=== PATIENT | female | born 1940 | race Caucasian/White ===

== ENCOUNTER 2024-10-26 10:06 | Outpatient (REF) | payer OTHER, MEDICARE, SELFPAY ==
--- OUTSIDE RECORDS SUMMARY | 2024-10-26 12:46 | XMS_ITS | Encounter Summary ---
Author Organization [facility] Address [address] [place] [address] Care Team Providers Care Net Web Developer Name Role Phone Marvel Dia MD Primary Care Provider [phone] Reason for Visit * Reason Onset Date Comments Nasal Congestion 10/14/2024 Encounter Details Date Type Department Care Team ([facility] st Contact Info) Description 10/14/2024 [facility] [address] [place] [phone] Marvel Dia MD [address] [place] [phone] Nasal Congestion Social History Tobacco Use Types [...] No immed. appts avail.-[facility] for [facility]. * Haley Armstrong - 10/14/2024 [...] traveled recently to another state outside of [place], [place], [place], [place], [place], [place], [place]? no o If yes, did you quarantine [...] of accident/Injury: No If yes, gather 3rd green party insurance information Third Democrat Information: not applicable PCP: Marvel Dia MD Payor: MEDICARE / Plan: MEDICARE PART A & B / Product Type: Medicare / documented in this encounter Plan of Treatment Upcoming Encounters Date Type Department Care Team (Late st Contact Info) Description 03/21/2025 12:00 PM EDT Consult Nephrology - [facility] [address] [place] [address] Richard Frias MD [address] [phone] 04/04/2025 2:30 PM EDT Office Visit Internal Medicine - [facility] [address] [place] [phone] Marvel Dia MD [address] [place] [phone] documented as of this encounter Visit Diagnoses Not on filedocumented in this encounter Care Teams Net Web Developer Relationship Specialty Start Date End Date Marvel Dia MD [address] [place] [phone] PCP - General Internal Medicine 09/30/24 documented as of this encounter
--- OUTSIDE RECORDS SUMMARY | 2024-10-26 12:46 | XMS_ITS | Clinical Summary ---
Author Organization [facility] Address [address] [place] [address] Care Team Providers Care Road Oiler Name Role Phone Marvel Dia MD Primary Care Provider [phone] Medications No known medications Active Problems No [...] age to complete this topic Care Teams Road Oiler Relationship Specialty Start Date End Date Marvel Dia MD PCP - General Internal Medicine 07/21/24
--- OUTSIDE RECORDS SUMMARY | 2024-10-26 12:46 | XMS_ITS | Clinical Summary ---
Author Organization [address] [facility] Address [address] [place] [phone] Phone Care Team Providers Care Real Estate Leasing Manager Name Role Phone Marvel Dia MD Primary Care Provider [phone] Allergies Active Allergy Reactions Criticality Noted Date [...] 2.5 mg by mouth as needed. Per manager underwriting Active hydrOXYzine HCL (ATARAX) 10 mg tabletIndications [...] Care Team Description 10/14/2024 Telephone Internal Medicine [address] [phone] Marvel Dia MD Nasal Congestion 10/04/2024 11:00 AM EST Office Visit Internal [address] [phone] Marvel Dia MD Primary hypertension (Primary Dx); Pure hypercholesterolemia ; Anxiety 08/31/2024 Telephone Internal [address] [phone] Marvel Dia MD Referral (EXTERNAL / NEPHROLOGY) 08/16/2024 Telephone Internal Medicine [address] [phone] Marvel Dia MD Referral 08/10/2024 1:30 PM EST Office Visit Internal [address] [phone] Marvel Dia MD MAGUI (acute kidney injury) ([facility]) (Primary Dx); Anxiety; Primary hypertension; Pacemaker 08/08/2024 Telephone Internal Medicine [address] [phone] Marvel Dia MD Medication Reaction 08/08/2024 Telephone Internal Medicine [address] [phone] Marvel Dia MD Diarrhea 08/07/2024 2:15 PM EST Clinic Lab Collection Walk-In Clinic - [address] [phone] Unspecified kidney failure (Primary Dx) 08/07/2024 1:45 PM EST Office Visit Walk-In [address] [phone] Devonte Jeff MD Urinary tract [...] 03/21/2025 12:00 PM EDT Consult Nephrology - [address] [phone] Richard Frias MD [address] [phone] 04/04/2025 2:30 PM EDT Office Visit Internal Medicine - [address] [phone] Marvel Dia MD [address] [place] [phone] Health Maintenance Due Date Last Done Comments [...] unspecified Fever, unspecified fever cause POC RAPID [id number], MOLECULAR Routine 08/07/2024 2:49 PM EST Fever, [...] - AUTOMATED METHOD 08/07/2024 6:49 PM EST [facility] WBC, Urine 6.0(H) 0 - 4 /HPF LAB URINALYSIS - AUTOMATED METHOD 08/07/2024 6:49 PM EST [facility] Squamous Epithelial, Urine 21 0 - 60 /LPF LAB URINALYSIS - AUTOMATED METHOD 08/07/2024 6:49 PM EST [facility] Bacteria, Urine Negative Negative /HPF LAB URINALYSIS - AUTOMATED METHOD 08/07/2024 6:49 PM EST [facility] Hyaline Casts, Urine 0.0 0 - 3 /LPF LAB URINALYSIS - AUTOMATED METHOD 08/07/2024 6:49 PM EST [facility] Urine Urine specimen obtained by clean catch procedure / Unknown Non-blood Collection / Unknown 08/07/2024 3:43 PM EST 08/07/2024 3:43 PM EST Devonte Jeff MD LAB URINE ORDERABLES [facility] [address] [place] [address], * Culture urine (08/07/2024 3:43 PM EST) Culture, Urine 10,000-49,000 CFU/mL Mixed urogenital rito, no uropathogens present. Suggest repeat specimen if clinically indicated. 08/09/2024 11:44 AM EST [facility] Urine Urine specimen from urethra / Unknown Non-blood Collection / Unknown 08/07/2024 3:43 PM EST 08/07/2024 3:43 PM EST Devonte Jeff MD LAB MICROBIOLOGY - G ENERAL ORDERABLES [facility] [address] [place] [address], * (ABNORMAL) POC Urine Non-Auto W/O Micro (08/07/2024 2:50 PM EST) [facility] Glucose UA POC Negative Negative, Trace mg/dL Leukocytes UA POC 2+(A) Negative Nitrite UA POC Negative Negative Urobilinogen UA POC 0.2 E.U./dL mg/dL Protein UA POC Negative Negative, >=300 mg/dL PH UA POC 5.0 Blood UA POC Negative Negative, Large Specific [place] UA POC 1.015 Ketones UA POC Negative Negative, Trace Bilirubin UA POC Negative Negative, Small Appearance UA POC Clear Color UA POC Light Yellow Urine Urine specimen obtained by clean catch procedure / Unknown 08/07/2024 2:50 PM EST Devonte Jeff MD POINT OF CARE TEST E NTER/EDIT ORDERABLES * Poc Rapid [id number], MOLECULAR (08/07/2024 2:49 PM EST) [facility] COVID-19/SARS- COV-2 Rapid POC Negative Negative Internal Control Pass Yes Yes Swab Nasopharyngeal structure / Unknown 08/07/2024 2:49 PM EST Devonte Jeff MD POINT OF CARE TEST E NTER/EDIT ORDERABLES * (ABNORMAL) Comprehensive metabolic panel (08/07/2024 2:39 PM EST) [facility] Sodium 139 133 - 145 mmol/L LAB CHEMISTRY METHOD 08/07/2024 8:30 PM EST [facility] Potassium 4.2 3.5 - 5.5 mmol/L LAB CHEMISTRY METHOD 08/07/2024 8:[address] [facility] Chloride 105 96 - 110 mmol/L LAB CHEMISTRY METHOD 08/07/2024 8:[address] [facility] CO2 25 21 - 32 mmol/L LAB CHEMISTRY METHOD 08/07/2024 8:[address] [facility] Anion Gap 9 3 - 11 LAB CHEMISTRY METHOD 08/07/2024 8:[address] [facility] Glucose 128(H) 70 - 100 mg/dL LAB CHEMISTRY METHOD 08/07/2024 8:[address] [facility] BUN 27(H) 5 - 25 mg/dL LAB CHEMISTRY METHOD 08/07/2024 8:[address] [facility] Creatinine 1.43(H) 0.50 - 1.10 mg/dL LAB CHEMISTRY METHOD 08/07/2024 8:[address] [facility] eGFR 36(L) >=60 mL/min/1. 73m2 LAB CHEMISTRY METHOD 08/07/2024 8:[address] [facility] Comment:Calculation based on the??Chronic Kidney Disease Epidemiology Collaboration (CKD-EPI) equation refit??without adjustment for race. BUN/Creatinine Ratio 18.9 LAB CHEMISTRY METHOD 08/07/2024 8:[address] [facility] Calcium 9.8 8.5 - 10.5 mg/dL LAB CHEMISTRY METHOD 08/07/2024 8:[address] [facility] AST (SGOT) 26 10 - 42 unit/L LAB CHEMISTRY METHOD 08/07/2024 8:[address] [facility] ALT (SGPT) 26 10 - 60 unit/L LAB CHEMISTRY METHOD 08/07/2024 8:[address] [facility] Alkaline Phosphatase 65 42 - 121 unit/L LAB CHEMISTRY METHOD 08/07/2024 8:[address] [facility] Total Protein 7.0 6.0 - 8.0 g/dL LAB CHEMISTRY METHOD 08/07/2024 8:30 PM EST [facility] Albumin 4.0 3.2 - 5.0 g/dL LAB CHEMISTRY METHOD 08/07/2024 8:30 PM EST [facility] Total Bilirubin 0.4 0.0 - 1.4 mg/dL LAB CHEMISTRY METHOD 08/07/2024 8:30 PM EST [facility] Blood Venous blood specimen / Unknown Venipuncture / Unknown 08/07/2024 2:39 PM EST 08/07/2024 2:40 PM EST Marvel Dia MD LAB BLOOD ORDERABLES [facility] [address] [place] [address], * Depression Screening (03/14/2024) Pathologist Replaced by [facility] Depression Screening abstracted Historical Provider MD PORTILLO EDWARDS E * (ABNORMAL) Lipid panel (03/14/2024) [facility] LDL/HDL Ratio 3 0 - 4 Triglycerides 62 0 - 150 mg/dL Cholesterol 238(A) 0 - 200 mg/dL HDL 85 40 mg/dL LDL Cholesterol 141(A) 0 - 100 mg/dL Blood Venous blood specimen / Unknown Historical Provider LAB BLOOD ORDERAB LES * Falls Risk Assessment (05/05/2023) [facility] Falls Risk Assessment abstracted Historical Provider MD PORTILLO Bosch from Last 3 Months or Most Recently Relevant to Health Maintenance Care Teams Real Estate Leasing Manager Relationship Specialty Start Date End Date Marvel Dia MD [address] [place] [phone] PCP - General Internal Medicine 09/30/24
--- OUTSIDE RECORDS SUMMARY | 2024-10-26 12:46 | XMS_ITS | Encounter Summary ---
Author Organization [facility] Address [address] [place] [address] Care Team Providers Care Visual Effects Editor Name Role Phone Marvel Dia MD Primary Care Provider [phone] Reason for Visit * Reason Comments Follow-up meds Encounter Details Date Type Department Care Team (Late st Contact Info) Description 10/04/2024 11:00 AM EST Office Visit Internal Medicine - [address] [phone] Marvel Dia MD [address] [place] [phone] Primary hypertension (Primary Dx); Pure hypercholesterolemia ; [...] 2.5 mg by mouth as needed. Per school operations manager LORazepam (ATIVAN) 0.5 mg tablet TAKE 1 [...] 03/21/2025 12:00 PM EDT Consult Nephrology - [address] [phone] Richard Frias MD [address] [phone] 04/04/2025 2:30 PM EDT Office Visit Internal Medicine - [address] [phone] Marvel Dia MD [address] [place] [address] Scheduled Orders Name Type Priority Associated Diagnoses Orde r Schedule Lipid panel Lab Routine Primary hypertension Pure hypercholesterolemia 1 Occurrences starting 10/04/2024 until 10/04/2025 documented as of this encounter Visit Diagnoses Diagnosis Primary hypertension- Primary Unspecified essential hypertension Pure hypercholesterolemia Anxiety Anxiety state, unspecified documented in this encounter Care Teams Visual Effects Editor Relationship Specialty Start Date End Date Marvel Dia MD [address] [place] [phone] PCP - General Internal Medicine 09/30/24 documented as of this encounter
[2024-10-26 17:41] LABS: MANUAL DIFF FLAG NO
[2024-10-26 17:49] LABS: Basophils Absolute Auto 0.1 X10*3/uL (0.0-0.2); Basophils Percent Auto 1.2 % (0-2); Eosinophils Absolute Auto 0.1 X10*3/uL (0.0-0.4); Eosinophils Percent Auto 0.7 % (0-4); Hematocrit 43.8 % (37.0-47.0); Hemoglobin 14.1 g/dl (12.0-16.0); Imm Gran Abs Auto 0.05 X10*3/uL (0.00-0.03); Imm Gran Pct Auto 0.6 % (0.0-0.4); Lymphocytes Absolute Auto 1.2 X10*3/uL (1.2-4.9); Lymphocytes Percent Auto 14.6 % (20-40); Mean Corpuscular HGB Conc 32.2 g/dl (31.0-35.0); Mean Corpuscular Hemoglobin 31.5 pg (27.0-33.0); Mean Platelet Volume 10.2 fL (9.4-12.3); Monocytes Absolute Auto 0.9 X10*3/uL (0.1-1.2); Monocytes Percent Auto 10.5 % (2-11); Neutrophils Percent Auto 72.4 % (45-73); Platelet Count 338 X10*3/uL (160-400); Red Blood Count 4.47 X10*6/uL (4.20-5.50); Red Cell Distribution Width 13.7 % (11.0-16.0); White Blood Count 8.2 X10*3/uL (4.8-10.8)
[2024-10-26 18:09] LABS: Appearance Urine Clear; Color Urine Yellow; Glucose Urine UA Negative (Negative); Leukocyte Esterase Urine Negative (Negative); Nitrite Urine Negative (Negative); PH 5.5 (5.0-9.0); Specific Gravity - Urine 1.015 (1.005-1.025); Urine Blood Negative (Negative); Urine Ketones Negative (Negative); Urine Protein Negative (Neg-Trace)
[2024-10-26 18:13] LABS: Creatinine Urine 56.52 mg/dL; Total Protein Urine Random < 7 mg/dL (<12)
[2024-10-26 18:32] LABS: Parathyroid Hormone Intact 96.5 pg/mL (8.7-77.1)
[2024-10-26 18:43] LABS: Alanine Aminotransferase 15 U/L (0-31); Albumin Level 4.2 g/dL (3.5-5.0); Alkaline Phosphatase 51 U/L (39-117); Anion Gap 11 (12-20); Aspartate Amino Transferase 26 U/L (5-31); Bilirubin Total 0.4 mg/dL (0.0-1.0); Blood Urea Nitrogen 26 mg/dL (9-16); Calcium 9.2 mg/dL (8.4-10.2); Carbon Dioxide 24 mmol/L (22-29); Chloride 107 mmol/L (96-108); Estimated Glomerular Filt Rate > 60; Glucose Random 95 mg/dL (60-115); Potassium 4.5 mmol/L (3.3-5.1); Sodium 137 mmol/L (135-145); Total Protein 7.3 g/dL (6.5-8.0)
[2024-10-26 18:58] LABS: Vitamin D 25-OH Total 43.3 ng/mL (>30)
== END 2024-10-26 10:07 | disposition home or self-care (01) ==
LOC: HO.HKASLDS 10:06
PROVIDERS: PCP Internal Medicine; Visit Provider Internal Medicine Hypertension Specialist
DX: N18.9 Chronic kidney disease, unspecified (principal); M34.1 CR(E)ST syndrome; I10 Essential (primary) hypertension
CPT/HCPCS: 36415; 80053; 81003; 82306; 82570; 83970; 84156; 84300; 85025

== ENCOUNTER 2024-10-26 10:06 | Outpatient (AMB) | payer OTHER, MEDICARE, SELFPAY ==
--- NOTE | 2024-10-26 10:08 | HO.NEPHOV ---
Vital Signs 10/26/24 10:09 10/26/24 10:39 10/26/24 10:39 Height 5 ft 2 in Weight 125 lb BMI 22.9 BP 150/74 H 110/80 110/70 Blood Pressure Location Lt brachial Lt brachial Lt brachial Position Sitting Sitting Standing Pulse 78 Pulse Source Pulse Oximeter Pulse Oximetry (%) 99 Oxygen Delivery Method Room Air Intake Visit Reasons: DX- MAGUI/ Conf Dry Talc Racker Required: No Accompanied by: Self / Same As Patient Allergies ANGIE Inhibitors Allergy (Unknown, Verified 10/26/24 10:13) Unknown amoxicillin Allergy (Unknown, Verified 10/26/24 10:13) Itching escitalopram Allergy (Unknown, Verified 10/26/24 10:13) Unknown lisinopril Allergy (Unknown, Verified 10/26/24 10:13) Unknown metronidazole Allergy (Unknown, Verified 10/26/24 10:13) Hives moxifloxacin Allergy (Unknown, Verified 10/26/24 10:13) Hives sertraline Allergy (Unknown, Verified 10/26/24 10:13) Unknown Sulfa (Sulfonamide Antibiotics) Allergy (Unknown, Verified 10/26/24 10:13) Unknown Medication List - Last Reconciled 10/26/24 by Gurdeep Campbell MD famotidine 40 mg PO BEDTIME famotidine 20 mg PO DAILY hydrochlorothiazide 12.5 mg PO Q OTHER DAY prednisone 5 mg PO DAILY HPI Comments Details: Pleasant 84 yr old woman referred for CKD She had a syncopal episode in Jun 2024 and 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 Lowest was 98/54 mmHG h/o CREST Was being followed by for a long time and currently has no [facility] follow up [facility] Medical History (Updated 10/26/24 @ 10:41 by Gurdeep Campbell MD) Pacemaker (~06/2024) Surgical History Hx of cholecystectomy History of cataract extraction Family History Sister Arthritis Alzheimer disease Mother Cancer of uterus Father Cerebral aneurysm Daughter Stroke Review of Systems Const Denies fever(s) and Denies weight loss Card Denies chest pain Resp Denies cough and Denies hemoptysis GI Denies abdominal pain, Denies diarrhea and Denies nausea Musc Denies back pain Neuro Denies focal weakness Physical Exam Vital Signs: Last Vital Signs Pulse 78 10/26/24 10:09 BP 110/70 10/26/24 10:39 Pulse Ox 99 10/26/24 10:09 Oxygen Delivery Method Room Air 10/26/24 10:09 BMI result Body Mass Index 22.9 Comfortable Neck supple no JVD. Lungs entry equal no rales. Heart S1-S2 heard no gallop or rub. Abdomen soft nontender. Neuro alert awake oriented. No asterixis. Extremities no edema. Results Reviewed Results Reviewed: As of 08/07/24 BUN 27 Cr 1.43 eGFR 43 ml/mt Lytes [place] LFTs normal Nephrology Results: No Data to Display Assessment & Plan Assessment & Plan (1) CKD (chronic kidney disease): Code(s): N18.9 - Chronic kidney disease, unspecified Category: Medical (2) CREST (calcinosis, Raynaud's phenomenon, esophageal dysfunction, sclerodactyly, telangiectasia): Code(s): M34.1 - CR(E)ST syndrome Category: Medical (3) HTN (hypertension): Code(s): I10 - Essential (primary) hypertension Category: Medical Plan 84 yr old woman with CKD 3 in a setting of longstanding HTN and superimposed White coat effect agaisnt a back drop of AV block and s/p PM placement and CREST Work up initiated for CKD Probably has HTN -nephrosclerosis r/o underlying glomerular causes Could have a component of hypoperfusion Suggest labs as ordered below Monitor BP at home If SBP < 110, I have asked her to hold HCTZ IF BP stays low, I will DC HCTZ Renal sonogram if creatinine does not improve Keep I >O Continue to avoid npehrotoxins including NSAIDs Refer to [facility]/ for CREST Orders: Orders Complete Blood Count Auto Diff Today N18.9 - Chronic kidney disease, unspecified Comprehensive Met. Panel Today N18.9 - Chronic kidney disease, unspecified Sodium Urine Random Today N18.9 - Chronic kidney disease, unspecified Parathyroid Hormone Intact Today N18.9 - Chronic kidney disease, unspecified Creatinine Urine Today N18.9 - Chronic kidney disease, unspecified Total Protein Urine Random Today N18.9 - Chronic kidney disease, unspecified UA and rflx microscopic Today N18.9 - Chronic kidney disease, unspecified Vitamin D 25-OH Total Today N18.9 - Chronic kidney disease, unspecified Referrals Rheumatology Referral M34.1 - CR(E)ST syndrome Coding Level of Care Code New Pt Level 4 (59173) Diagnoses CKD (chronic kidney disease) N18.9 CREST (calcinosis, Raynaud's phenomenon, esophageal dysfunction, sclerodactyly, telangiectasia) M34.1 HTN (hypertension) I10
[2024-10-26 10:09] VITALS: BP 150/74; PULSE 78; O2SAT 99; BMI 22.9
[2024-10-26 10:39] VITALS: BP 110/70; BP 110/80
--- OUTSIDE RECORDS SUMMARY | 2024-10-26 12:01 | XMS_ITS | Encounter Summary ---
Author Organization [facility] Address [address] [place] [address] Care Team Providers Care Hazardous Waste Remover Name Role Phone Marvel Dia MD Primary Care Provider [phone] Reason for Visit * Reason Comments Follow-up meds Encounter Details Date Type Department Care Team (Late st Contact Info) Description 10/04/2024 11:00 AM EST Office Visit Internal Medicine - [address] [phone] Marvel Dia MD [address] [place] [phone] Primary hypertension (Primary Dx); Pure hypercholesterolemia ; Anxiety Social History Tobacco Use Types Packs/Day Years Used Date Smoking Tobacco: Former Cigarettes Q uit: 04/28/1990 Smokeless Tobacco: Former Tobacco Cessation:Counseling Given: Not Answered Alcohol Use Standard Drinks/Week Comments No 0 (1 standard drink = 0.6 oz pur e alcohol) Sex and Gender Information Value Date Recorded Sex Assigned at Not on file Gender Identity Not on file Sexual Orientation Not on file Job Start Date Occupation Industry Not on file Not on file Not on file documented as of this encounter Last Filed Vital Signs Vital Sign Reading Time Taken Comments Blood Pressure 140/72 10/04/2024 10:56 AM EST Pulse 72 10/04/2024 10:56 AM EST Temperature - - Respiratory Rate - - Oxygen Saturation - - Inhaled Oxygen Concentration - - Weight 57 kg (125 lb 9.6 oz) 10/04/2024 10:56 AM EST Height 157.5 cm (5' 2 ) 10/04/2024 10:56 AM EST Body Mass Index 22.97 10/04/2024 10:56 AM EST documented in this encounter Progress Notes * Marvel Dia MD - 10/04/2024 11:00 AM EST CHIEF COMPLAINT: Chief Complaint Patient presents with Follow-up meds IDENTIFIER: Chichi Neville. 84 y.o.. HPI: Patient presents to office today to follow-up on long history of hypertension hyperlipidemia anxiety. She is doing well. She has an upcoming appointment with cardiology as there is a question of her pacemaker being possibly infected. She is on antibiotics presently. No fever chills pain reported blood pressure is stable anxiety stable on lorazepam as needed she is in good spirits PAST MEDICAL HISTORY: Past Medical History: Diagnosis Date Anxiety 01/19/2018 DX:Anxiety Cataract 04/13/2017 DX:Cataract CKD (chronic kidney disease) stage 3, GFR 30-59 ml/min (CMS/HCC) 10/02/2020 DX:CKD (chronic kidney disease) stage 3, GFR 30-59 ml/min (HCC) CREST syndrome (CMS/HCC) DX:CREST syndrome (HCC) GERD (gastroesophageal reflux disease) 07/01/2017 DX:GERD (gastroesophageal reflux disease) Glaucoma 11/01/2015 DX:Glaucoma Hyperlipidemia 04/05/2018 DX:Hyperlipidemia Hypertension 04/09/2018 DX:Hypertension 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/26/2022 DX:Hypertrophic cardiomyopathy (HCC) Lumbar back pain DX:Lumbar back pain Sjogrens syndrome (CMS/HCC) 01/19/2018 DX:Sjogrens syndrome (HCC) Tricuspid regurgitation 11/26/2022 DX:Tricuspid regurgitation Vitamin D deficiency 10/05/2015 DX:Vitamin D deficiency PAST SURGICAL HX: Past Surgical History: Procedure Laterality Date CATARACT EXTRACTION PROCEDURE: HISTORICAL CATARACT REMOVAL CHOLECYSTECTOMY PROCEDURE: HISTORICAL CHOLECYSTECTOMY SOCIAL HISTORY: FAMILY HISTORY: Family History Problem Relation Name Age of Onset Arthritis Sister Alzheimer's disease Sister Other (Other: cancer of the uterus) Mother dec Cerebral aneurysm Father Stroke Daughter blood clot after covid vaccine and stroke No Known Problems Son MEDICATIONS DISCONTINUED/REORDERED: There are no discontinued medications. ACTIVE MEDICATIONS: Current Outpatient Medications on File Prior to Visit Medication Sig Dispense Refill FAMOTIDINE ORAL Take by mouth daily. hydroCHLOROthiazide 12.5 mg tablet Take 1 tablet (12.5 mg total) by mouth every other day. hydrOXYzine HCL (ATARAX) 10 mg tablet Take 1 tablet (10 mg total) by mouth 2 (two) times a day if needed for itching. 180 tablet 0 predniSONE (DELTASONE) 2.5 mg tablet Take 2.5 mg by mouth as needed. Per station repairer LORazepam (ATIVAN) 0.5 mg tablet TAKE 1 TABLET BY MOUTH DAILY NEEDED FOR ANXIETY FOR UP TO 28 DAYS. No current facility-administered medications on file prior to visit. ALLERGIES: Allergies Allergen Reactions Metronidazole Other Reaction(s): Hives/Urticaria Pritesh Inhibitors Amoxicillin Itching Arb-Angiotensin Receptor Antagonist Escitalopram Oxalate Heart palpation , insomnia , sweats and anxiety Lisinopril Moxifloxacin Other Reaction(s): Hives/Urticaria Sertraline Sulfa (Sulfonamide Antibiotics) Itching Other Reaction(s): Numbness, tingling or swelling of the lips, tongue or mouth ROS: Constitutional: no weakness fever/ sweats, or weight change Eyes: no blurred vision,pain or discharge ENT: no mouth pain,oral bleeding, congestion or discharge Respiratory: no shortness of breath, cough or wheezing Cardiovascular:no chest pain or palpitations, no orthopnea or PND GI: no nausea, vomiting or diarrhea; no rectal bleeding or dark stools : no dysuria or frequency; no nocturia or hesitancy PHYSICAL EXAM: Vitals: 10/04/24 1056 BP: (!) 140/72 Pulse: 72 BMI PLAN BMI Body mass index is 22.97 kg/m??. General: the patient is in no acute distress.A & Ox 3 Head/Neck: neck supple Lungs: clear to percussion and auscultation. Heart: regular rhythm; . Abdominal exam; positive bowel sounds; soft Extremities: no cyanosis, clubbing or edema. LABS: ordered IMPRESSION: Encounter Diagnoses Name Primary? Primary hypertension Yes Pure hypercholesterolemia Anxiety PLAN: Hypertension continue hydrochlorothiazide 12.5 mg daily patient does follow a low-sodium diet and has an upcoming appointments with nephrology Hyperlipidemia continue low-cholesterol diet she will update her blood work in the next few days Generalized anxiety disorder continue with lorazepam as needed I have maintained a long-term, longitudinal relationship with this patient, overseeing care of chronic conditions including hypertension hyperlipidemia anxiety. This care relationship has significantly influenced my decision making and treatment plans during today's encounter. Orders Placed This Encounter Procedures Lipid panel Standing Status: Future Number of Occurrences: 1 Standing Expiration Date: 10/04/2025 Additional Orders: None Marvel Dia MD documented in this encounter Plan of Treatment Upcoming Encounters Date Type Department Care Team (Late st Contact Info) Description 03/21/2025 12:00 PM EDT Consult Nephrology - [address] [phone] Richard Frias MD [address] [phone] 04/04/2025 2:30 PM EDT Office Visit Internal Medicine - [address] [phone] Marvel Dia MD [address] [place] [phone] Scheduled Orders Name Type Priority Associated Diagnoses Orde r Schedule Lipid panel Lab Routine Primary hypertension Pure hypercholesterolemia 1 Occurrences starting 10/04/2024 until 10/04/2025 documented as of this encounter Visit Diagnoses Diagnosis Primary hypertension- Primary Unspecified essential hypertension Pure hypercholesterolemia Anxiety Anxiety state, unspecified documented in this encounter Care Teams Hazardous Waste Remover Relationship Specialty Start Date End Date Marvel Dia MD [address] [place] [phone] PCP - General Internal Medicine 09/30/24 documented as of this encounter
--- OUTSIDE RECORDS SUMMARY | 2024-10-26 12:01 | XMS_ITS ---
Author Name [facility] Organization Unknown Results Test Name/Text Value Interpretation Date Range Source Troponin I SerPl HS-mCnc 29ng/L Above high normal [id number] 0 - 14 [facility] BNP BLD MCNC 380pg/mL Above high normal [id number] 0 - 10 0 [facility] Troponin I SerPl HS-mCnc 27ng/L Above high normal [id number] 0 - 14 [facility] CREAT SERPL MCNC 1.2mg/dL Above high normal [id number] 0. 5 - 1 [facility] CALCIUM SERPL MCNC 9.1mg/dL Normal [id number] 8.4 - 10 .2 [facility] SODIUM SERPL SCNC 137mmol/L Normal [id number] 135 - 145 [facility] ANION GAP SERPL SCNC 11mmol/L Normal [id number] 5 - 14 [facility] Glomerular filtration rate/1.73 sq M. predicted 45 Below low normal [id number] 60 - [facility] HCO3 SER SCNC 22mmol/L Below low normal [id number] 24 - 3 2 [facility] GLUCOSE SERPL MCNC 96mg/dL Normal [id number] 70 - 199 [facility] BUN SERPL MCNC 33mg/dL Above high normal [id number] 7 - 17 [facility] CHLORIDE SERPL SCNC 104mmol/L Normal [id number] 98 - 10 7 [facility] POTASSIUM SERPL SCNC 4.5mmol/L Normal [id number] 3.5 - 5.1 [facility] MAGNESIUM SERPL MCNC 2.1mg/dL Normal [id number] 1.7 - 2.8 [facility] PLATELET NO. BLD AUTO 234K/uL Normal [id number] 150 - 450 [facility] RBC NO. BLD AUTO 4.28M/uL Normal [id number] 4.2 - 5.4 [facility] NUCLEATED RBC 0% Normal [id number] 0 - 1 [facility] LYMPHOCYTES NO. BLD AUTO 1.7K/uL Normal 1 - 3.2 [facility] EOSINOPHIL NO. BLD AUTO 0.1K/uL Normal 0 - 0.5 [facility] MCH RBC QN AUTO 32.2pg Normal 25 - 33 [facility] MCHC RBC AUTO MCNC 33.5g/dL Normal 32 - 36 [facility] MONOCYTES NFR BLD AUTO 10.4% Normal 2 - 12 [facility] IMMATURE GRANULOCYTE, ABSOLUTE 0.01k/uL Normal - 0.1 [facility] LYMPHOCYTES NFR BLD AUTO 28% Normal 20 - 48 [facility] EOSINOPHIL NFR BLD AUTO 1.1% Normal 0 - 6 [facility] HGB BLD MCNC 13.8g/dL Normal 12.5 - 16 [facility] NEUTROPHILS NO. BLD AUTO 3.6K/uL Normal 1. 8 - 7.8 [facility] WBC NO. BLD AUTO 6.2K/uL Normal 4 - 10.5 [facility] BASOPHILS NFR BLD AUTO 1.5% Normal 0 - 2 [facility] MONOCYTES NO. BLD AUTO 0.6K/uL Normal 0 - 0.8 [facility] MCV RBC AUTO 96.3fL Normal 78 - 100 [facility] NEUTROPHILS NFR BLD AUTO 58.8% Normal 44 - 74 [facility] IMMATURE GRANULOCYTE, PERCENT 0.2% Normal 0 - 1 [facility] BASOPHILS IN BLOOD BY AUTOMATED COUNT 0.1K/uL Normal 0 - 0.2 [facility] PMV BLD AUTO 10fL Normal 7.4 - 11.4 [facility] RDW RBC AUTO RTO 13.2% Normal 12.1 - 16. 2 [facility] HCT VFR BLD AUTO 41.2% Normal 37 - 47 [facility] Problems Problem Status Onset Date Problem Type Date of Resoluti on Source Bradycardia active EncounterDiagnosisAct [facility] Elevated creatine kinase level active EncounterDiagnosisAct [facility] H
--- OUTSIDE RECORDS SUMMARY | 2024-10-26 12:01 | XMS_ITS | Clinical Summary ---
Author Organization [address] Re[address] by [facility] Address [address] [place] [phone] Phone Care Team Providers Care Stock Raiser Name Role Phone Marvel Dia MD Primary Care Provider [phone] Allergies Active Allergy Reactions Criticality Noted Date Comments Pritesh Inhibitors 08/21/2015 Amoxicillin Itching 07/07/2023 Arb-Angiotensin Receptor Antagonist 08/21/2015 Escitalopram Oxalate 06/10/2022 Heart palpation , insomnia , sweats and anxiety Lisinopril 01/15/2022 Metronidazole Medium 12/08/2016 Other Reaction(s): Hives/Urticaria Moxifloxacin 09/02/2007 Other Reaction(s): Hives/Urticaria Sertraline 04/23/2009 Sulfa (Sulfonamide Antibiotics) Itching 08/14/2006 Other Reaction(s): Numbness, tingling or swelling of the lips, tongue or mouth Medications Medication Sig Dispensed Refills Start Date End Date Status LORazepam (ATIVAN) 0.5 mg tablet TAKE 1 TABLET BY MOUTH DAILY NEEDED FOR ANXIETY FOR UP TO 28 DAYS. 03/14/2024 Active hydroCHLOROthiazi de 12.5 mg tablet Take 1 tablet (12.5 mg total) by mouth every other day. 08/03/2023 Active FAMOTIDINE ORAL Take by mouth daily. Active predniSONE (DELTASONE) 2.5 mg tablet Take 2.5 mg by mouth as needed. Per electrical high tension tester Active hydrOXYzine HCL (ATARAX) 10 mg tabletIndications :Anxiety Take 1 tablet (10 mg total) by mouth 2 (two) times a day if needed for itching. 180 tablet 08/22/2024 Active Active Problems Problem Noted Date Diagnosed Date Pacemaker 08/10/2024 ECG abnormal 11/26/2022 Overview (07/28/2024): Last Assessment & Plan: Her EKG has been stable. She does have anterolateral T wave inversions. 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 This has been unchanged and we will continue to monitor Hypertrophic cardiomyopathy 11/26/2022 Overview (07/28/2024): Last Assessment & Plan: Patient has history of apical hypertrophic cardiomyopathy which does not seem to be causing her any trouble at this time. Her last echocardiogram done 12/2022 showed an LVEF of is 70%. She continues to remain asymptomatic and denies any clinical symptoms of heart failure. She has no evidence of outflow tract obstruction which is less likely with the location of this hypertrophy. Advised to continue with good hydration and to call us with any change of symptoms. Tricuspid regurgitation 11/26/2022 Overview (07/28/2024): Last Assessment & Plan: Last echocardiogram showing mild tricuspid regurgitation. 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 We will continue to monitor this. We will repeat an echocardiogram in December. Her echocardiogram showed no pulm hypertension. Hearing loss of right ear 12/19/2019 Hypertension 04/09/2018 Overview (07/28/2024): Last Assessment & Plan: Patient's blood pressure today was 148/75. She monitors her blood pressure carefully at home every day and notes that due to her anxiety she has elevated blood pressure readings in the office. Her home blood pressure readings last couple of days were 124/72 and 114/64. She will continue on her present dose of hydrochlorothiazide as prescribed. Hyperlipidemia 04/05/2018 Overview (07/28/2024): Last Assessment & Plan: Patient's last LDL cholesterol was 130. She is not on any lipid-lowering agents. Sjogrens syndrome 01/19/2018 GERD (gastroesophageal reflux disease) 7 Cataract 04/13/2017 Glaucoma 11/01/2015 Vitamin D deficiency 10/05/2015 Encounters Date Type Department Care Team Description 10/14/2024 Telephone Internal Medicine [address] [phone] Marvel Dia MD Nasal Congestion 10/04/2024 11:00 AM EST Office Visit Internal [address] [phone] Marvel Dia MD Primary hypertension (Primary Dx); Pure hypercholesterolemia ; Anxiety 08/31/2024 Telephone Internal [address] [phone] Marvel Dia MD Referral (EXTERNAL / NEPHROLOGY) 08/16/2024 Telephone Internal Medicine [address] [phone] Marvel Dia MD Referral 08/10/2024 1:30 PM EST Office Visit Internal [address] [phone] Marvel Dia MD MAGUI (acute kidney injury) ([facility]) (Primary Dx); Anxiety; Primary hypertension; Pacemaker 08/08/2024 Telephone Internal Medicine [address] [phone] Marvel Dia MD Medication Reaction 08/08/2024 Telephone Internal Medicine [address] [phone] Marvel Dia MD Diarrhea 08/07/2024 2:15 PM EST Clinic Lab Collection Walk-In Clinic - [address] [phone] Unspecified kidney failure (Primary Dx) 08/07/2024 1:45 PM EST Office Visit Walk-In [address] [phone] Devonte Jeff MD Urinary tract infection without hematuria, site unspecified (Primary Dx); Fever, unspecified fever cause from Last 3 Months Immunizations Name Administration Dates Next Due Tdap Tetanus diptheria acell ular pertussis (Boostrix; Adacel) 7yo and older 03/14/2024 Surgical History Surgery Date Site/Laterality Comments CHOLECYSTECTOMY PROCEDURE: HISTORICAL CHOLECYSTECTOMY CATARACT EXTRACTION PROCEDURE: HISTORICAL CATARACT REMOVAL Medical History Medical History Date Comments Anxiety 01/19/2018 DX:Anxiety Cataract 04/13/2017 DX:Cataract GERD (gastroesophageal reflu x disease) 07/01/2017 DX:GERD (gastroesophageal re flux disease) Glaucoma 11/01/2015 DX:Glaucoma Hyperlipidemia 04/05/2018 DX:Hyperlipidemi a Hypertension 04/09/2018 DX:Hypertension Sjogrens syndrome (CMS/HCC) 01/19/2018 DX:S jogrens syndrome (HCC) Vitamin D deficiency 10/05/2015 DX:Vitamin D deficiency Lumbar back pain DX:Lumbar back pain CKD (chronic kidney disease) stage 3, GFR 30-59 ml/min (CMS/HCC) 10/02/2020 DX:CKD (chronic kidney dise ase) stage 3, GFR 30-59 ml/min (HCC) CREST syndrome (CMS/HCC) DX:LORETO T syndrome (HCC) 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/26/2022 DX:Hypertrophic cardiomyopathy (HCC) Tricuspid regurgitation 11/26/2022 DX:Tricu spid regurgitation Family History Medical History Relation Name Comments Stroke Daughter blood clot afte r covid vaccine and stroke Cerebral aneurysm Father Other: cancer of the uterus Mother dec Alzheimer's disease Sister Arthritis Sister No Known Problems Son Relation Name Status Comments Daughter Alive Father Mother Sister Alive Son Alive Social History Tobacco Use Types Packs/Day Years [...] file Not on file Not on file Obstetrics History Last Filed Vital Signs Vital Sign Reading Time Taken Comments Blood Pressure 140/72 10/04/2024 10:56 AM EST Pulse 72 10/04/2024 10:56 AM EST Temperature 36.7 ??C (98 ??F) 08/10/2024 1:32 PM EST Respiratory Rate - - Oxygen Saturation 98% 08/07/2024 2:18 PM EST Inhaled Oxygen Concentration - - Weight 57 kg (125 lb 9.6 oz) 10/04/2024 10:56 AM EST Height 157.5 cm (5' 2 ) 10/04/2024 10:56 AM EST Body Mass Index 22.97 10/04/2024 10:56 AM EST Plan of Treatment Upcoming Encounters Date Type Department Care Team (Late st Contact Info) Description 03/21/2025 12:00 PM EDT Consult Nephrology - [address] [phone] Richard Frias MD [address] [phone] 04/04/2025 2:30 PM EDT Office Visit Internal Medicine - [address] [phone] Marvel Dia MD [address] [place] [phone] Health Maintenance Due Date Last Done Comments Pneumococcal Vaccine: 65+ Years (1 of 1 - PCV) 2006 RSV Immunization Patients 60+ Years Old (1 - 1-dose 75+ series) 2016 COVID-19 Vaccine (3 - Pfizer risk series) 01/01/2021 12/04/2020, 11/12/2020 Medicare Annual Wellness Visit 09/06/2022 Osteoporosis Screening (Bone Density Screening) 09/06/2022 Social Influencers of Health Screening 09/06/2022 Falls Risk Assessment 05/05/2024 05/05/2023 Influenza Vaccine (#1) 2024 Depression Screening 03/14/2025 03/14/2024 Hypertension/CHF/CAD Annual BMP Blood Test 08/07/2025 08/07/2024, 07/21/2024, 07/21/2024, Additional history exists Cholesterol Screening (Lipid Panel) 03/14/2029 03/14/2024, 03/14/2024 DTaP,Tdap,and Td Vaccines (2 - Td or Tdap) 03/14/2034 03/14/2024 HIB Vaccines Aged Out No longer eligi ble based on patient's age to complete this topic HPV Vaccines Aged Out No longer eligi ble based on patient's age to complete this topic Hepatitis A Vaccines Aged Out No long er eligible based on patient's age to complete this topic Hepatitis B Vaccines Aged Out No long er eligible based on patient's age to complete this topic IPV Vaccines Aged Out No longer eligi ble based on patient's age to complete this topic MMR Vaccines Aged Out No longer eligi ble based on patient's age to complete this topic Meningococcal ACWY Vaccine Aged Out N o longer eligible based on patient's age to complete this topic RSV Immunization Patients Under 20 months Aged Out No longer eligible based on patient's age to complete this topic Varicella Vaccines Aged Out No longer eligible based on patient's age to complete this topic Zoster Vaccines Discontinued Procedures Procedure Name Priority Date/Time Associated Diagnosis Comments URINALYSIS MICROSCOPIC ONLY Routine 08/07/2024 3:43 PM EST Urinary tract infection without hematuria, site unspecified URINALYSIS MICROSCOPIC ONLY Routine 08/07/2024 3:43 PM EST Urinary tract infection without hematuria, site unspecified CULTURE URINE Routine 08/07/2024 3:43 PM EST Urinary tract infection without hematuria, site unspecified POC URINE NON-AUTO W/O MICRO Routine 08/07/2024 2:50 PM EST Urinary tract infection without hematuria, site unspecified Fever, unspecified fever cause POC RAPID [id number], MOLECULAR Routine 08/07/2024 2:49 PM EST Fever, unspecified fever cause COMPREHENSIVE METABOLIC PANEL Routine 08/07/2024 2:39 PM EST Unspecified kidney failure DEPRESSION SCREENING Routine 03/14/2024 LIPID PANEL Routine 03/14/2024 FALLS RISK ASSESSMENT Routine 05/05/2023 from Last 3 Months or Most Recently Relevant to Health Maintenance Results * (ABNORMAL) Urinalysis microscopic only (08/07/2024 3:43 PM EST) RBC, Urine 1.8 0 - 4 /HPF LAB URINALYSIS - AUTOMATED METHOD 08/07/2024 6:49 PM EST [facility] WBC, Urine 6.0(H) 0 - 4 /HPF LAB URINALYSIS - AUTOMATED METHOD 08/07/2024 6:49 PM EST [facility] Squamous Epithelial, Urine 21 0 - 60 /LPF LAB URINALYSIS - AUTOMATED METHOD 08/07/2024 6:49 PM EST [facility] Bacteria, Urine Negative Negative /HPF LAB URINALYSIS - AUTOMATED METHOD 08/07/2024 6:49 PM EST [facility] Hyaline Casts, Urine 0.0 0 - 3 /LPF LAB URINALYSIS - AUTOMATED METHOD 08/07/2024 6:49 PM EST [facility] Urine Urine specimen obtained by clean catch procedure / Unknown Non-blood Collection / Unknown 08/07/2024 3:43 PM EST 08/07/2024 3:43 PM EST Devonte Jeff MD LAB URINE ORDERABLES [facility] [address] [place] [address], * Culture urine (08/07/2024 3:43 PM EST) Culture, Urine 10,000-49,000 CFU/mL Mixed urogenital rito, no uropathogens present. Suggest repeat specimen if clinically indicated. 08/09/2024 11:44 AM EST [facility] Urine Urine specimen from urethra / Unknown Non-blood Collection / Unknown 08/07/2024 3:43 PM EST 08/07/2024 3:43 PM EST Devonte Jeff MD LAB MICROBIOLOGY - G ENERAL ORDERABLES [facility] [address] [place] [address], * (ABNORMAL) POC Urine Non-Auto W/O Micro (08/07/2024 2:50 PM EST) [facility] Glucose UA POC Negative Negative, Trace mg/dL Leukocytes UA POC 2+(A) Negative Nitrite UA POC Negative Negative Urobilinogen UA POC 0.2 E.U./dL mg/dL Protein UA POC Negative Negative, >=300 mg/dL PH UA POC 5.0 Blood UA POC Negative Negative, Large Specific [place] UA POC 1.015 Ketones UA POC Negative Negative, Trace Bilirubin UA POC Negative Negative, Small Appearance UA POC Clear Color UA POC Light Yellow Urine Urine specimen obtained by clean catch procedure / Unknown 08/07/2024 2:50 PM EST Devonte Jeff MD POINT OF CARE TEST E NTER/EDIT ORDERABLES * Poc Rapid [id number], MOLECULAR (08/07/2024 2:49 PM EST) [facility] COVID-19/SARS- COV-2 Rapid POC Negative Negative Internal Control Pass Yes Yes Swab Nasopharyngeal structure / Unknown 08/07/2024 2:49 PM EST Devonte Jeff MD POINT OF CARE TEST E NTER/EDIT ORDERABLES * (ABNORMAL) Comprehensive metabolic panel (08/07/2024 2:39 PM EST) [facility] Sodium 139 133 - 145 mmol/L LAB CHEMISTRY METHOD 08/07/2024 8:30 PM EST [facility] Potassium 4.2 3.5 - 5.5 mmol/L LAB CHEMISTRY METHOD 08/07/2024 8:30 PM [facility] Chloride 105 96 - 110 mmol/L LAB CHEMISTRY METHOD 08/07/2024 8:30 PM [facility] CO2 25 21 - 32 mmol/L LAB CHEMISTRY METHOD 08/07/2024 8:30 PM [facility] Anion Gap 9 3 - 11 LAB CHEMISTRY METHOD 08/07/2024 8:30 PM [facility] Glucose 128(H) 70 - 100 mg/dL LAB CHEMISTRY METHOD 08/07/2024 8:30 PM [facility] BUN 27(H) 5 - 25 mg/dL LAB CHEMISTRY METHOD 08/07/2024 8:30 PM [facility] Creatinine 1.43(H) 0.50 - 1.10 mg/dL LAB CHEMISTRY METHOD 08/07/2024 8:30 PM [facility] eGFR 36(L) >=60 mL/min/1. 73m2 LAB CHEMISTRY METHOD 08/07/2024 8:30 PM [facility] Comment:Calculation based on the??Chronic Kidney Disease Epidemiology Collaboration (CKD-EPI) equation refit??without adjustment for race. BUN/Creatinine Ratio 18.9 LAB CHEMISTRY METHOD 08/07/2024 8:30 PM [facility] Calcium 9.8 8.5 - 10.5 mg/dL LAB CHEMISTRY METHOD 08/07/2024 8:30 PM [facility] AST (SGOT) 26 10 - 42 unit/L LAB CHEMISTRY METHOD 08/07/2024 8:30 PM [facility] ALT (SGPT) 26 10 - 60 unit/L LAB CHEMISTRY METHOD 08/07/2024 8:30 PM [facility] Alkaline Phosphatase 65 42 - 121 unit/L LAB CHEMISTRY METHOD 08/07/2024 8:30 PM [facility] Total Protein 7.0 6.0 - 8.0 g/dL LAB CHEMISTRY METHOD 08/07/2024 8:30 PM EST [facility] Albumin 4.0 3.2 - 5.0 g/dL LAB CHEMISTRY METHOD 08/07/2024 8:30 PM EST [facility] Total Bilirubin 0.4 0.0 - 1.4 mg/dL LAB CHEMISTRY METHOD 08/07/2024 8:30 PM EST [facility] Blood Venous blood specimen / Unknown Venipuncture / Unknown 08/07/2024 2:39 PM EST 08/07/2024 2:40 PM EST Marvel Dia MD LAB BLOOD ORDERABLES [facility] [address] [place] [address], * Depression Screening (03/14/2024) Pathologist [facility] Depression Screening abstracted Historical Provider MD PORTILLO EDWARDS E * (ABNORMAL) Lipid panel (03/14/2024) [facility] LDL/HDL Ratio 3 0 - 4 Triglycerides 62 0 - 150 mg/dL Cholesterol 238(A) 0 - 200 mg/dL HDL 85 40 mg/dL LDL Cholesterol 141(A) 0 - 100 mg/dL Blood Venous blood specimen / Unknown Historical Provider LAB BLOOD ORDERAB LES * Falls Risk Assessment (05/05/2023) [facility] Falls Risk Assessment abstracted Historical Provider MD PORTILLO Bosch from Last 3 Months or Most Recently Relevant to Health Maintenance Care Teams Stock Raiser Relationship Specialty Start Date End Date Marvel Dia MD [address] [place] [id number] PCP - General Internal Medicine 09/30/24
--- OUTSIDE RECORDS SUMMARY | 2024-10-26 12:01 | XMS_ITS | Encounter Summary ---
Author Organization [facility] Address [address] [place] [address] Care Team Providers Care Pens And Pencils Dipper Name Role Phone Marvel Dia MD Primary Care Provider [phone] Reason for Visit * Reason Onset Date Comments Nasal Congestion 10/14/2024 Encounter Details Date Type Department Care Team ([facility] st Contact Info) Description 10/14/2024 [facility] [address] [place] [phone] Marvel Dia MD [address] [place] [phone] Nasal Congestion Social History Tobacco Use Types Packs/Day Years Used Date Smoking Tobacco: Former Cigarettes Q uit: 04/28/1990 Smokeless Tobacco: Former Alcohol Use Standard Drinks/Week Comments No 0 (1 standard drink = 0.6 oz pur e alcohol) Sex and Gender Information Value Date Recorded Sex Assigned at Not on file Gender Identity Not on file Sexual Orientation Not on file Job Start Date Occupation Industry Not on file Not on file Not on file documented as of this encounter Progress Notes * Anita Connors RN - 10/14/2024 12:44 PM EST Spoke tp pt-reports of persisting congested cough/wheezing at times with sinus s/x x 6 days-nasal pressure/ headaches/ear pressure. She had a low grade fever of 100.0 few days ago. Pt takes otc tylenol/sinus; tussin with short-term relief. She drinks more warm fluids-tea/soups/broth . No immed. appts avail.-she will call the [facility] for appt. * Haley Armstrong - 10/14/2024 11:24 AM EST Patient call requires triage: Symptoms patient is presenting: Cough w congestion, headaches, spitting out yellow mucus Low grade fever 100 How long has patient had these symptoms?: 6 days For ALL patients calling to schedule any appointment (routine, sick visit, follow up, consult, etc.) in the outpatient setting please ask the following questions: Do you have fever of higher than 101, sore throat with difficulty swallowing or severe shortness ofbreath? no If YES to any of these above symptoms, send a message to triage and do not book. Red dot. If no, an audio or video visit should be booked. Have you had close contact with someone with Coronavirus in the last 14 days? no Have you traveled abroad? no Have you traveled recently to another state outside of [place], [place], [place], [place], [place], [place], [place]? no o If yes, did you quarantine for 14 days or have a negative covid test? no If yes to any of the above, patient is not to be scheduled in office until after 14 day quarantine or negative covid test. If pain or injury related was it due to an accident at work or from a motor vehicle accident? If yes, date of accident/Injury: No If yes, gather 3rd republican insurance information Third Constitution Party Information: not applicable PCP: Marvel Dia MD Payor: MEDICARE / Plan: MEDICARE PART A & B / Product Type: Medicare / documented in this encounter Plan of Treatment Upcoming Encounters Date Type Department Care Team (Late st Contact Info) Description 03/21/2025 12:00 PM EDT Consult Nephrology - [facility] [address] [place] [address] Richard Frias MD [address] [phone] 04/04/2025 2:30 PM EDT Office Visit Internal Medicine - [facility] [address] [place] [phone] Marvel Dia MD [address] [place] [phone] documented as of this encounter Visit Diagnoses Not on filedocumented in this encounter Care Teams Pens And Pencils Dipper Relationship Specialty Start Date End Date Marvel Dia MD [address] [place] [phone] PCP - General Internal Medicine 09/30/24 documented as of this encounter
--- OUTSIDE RECORDS SUMMARY | 2024-10-26 12:01 | XMS_ITS | Clinical Summary ---
Author Organization [facility] Address [address] [place] [address] Care Team Providers Care Energy Efficiency Specialist Name Role Phone Marvel Dia MD Primary Care Provider [phone] Medications No known medications Active Problems No known active problems Social History Tobacco Use Types Packs/Day Years Used Date Smoking Tobacco: Never Tobacco Cessation:Counseling Given: Not Answered Sex and Gender Information Value Date Recorded Sex Assigned at Female 07/21/2024 6:06 PM EDT Gender Identity Not on file Sexual Orientation Not on file Job Start Date Occupation Industry Not on file Not on file Not on file Last Filed Vital Signs Vital Sign Reading Time Taken Comments Blood Pressure 141/97 07/22/2024 9:01 PM EDT Pulse 54 07/22/2024 9:01 PM EDT Temperature 36.1 ??C (97 ??F) 07/22/2024 9:01 PM EDT Respiratory Rate 28 07/22/2024 9:01 PM EDT Oxygen Saturation 95% 07/22/2024 9:01 PM EDT Inhaled Oxygen Concentration - - Weight 54.4 kg (120 lb) 07/21/2024 6:52 PM EDT Height 160 cm (5' 3 ) 07/21/2024 6:52 PM EDT Body Mass Index 21.26 07/21/2024 6:52 PM EDT Plan of Treatment Health Maintenance Due Date Last Done Comments Depression Screening 1953 Preventative Health Evaluation 1959 Shingrix-Zoster Vaccine (1 o f 2) 1991 Fall Risk Assessment 2006 Osteoporosis Screening (DEXA Scan) 2006 Pneumococcal Vaccine (1 of 1 - PCV) 2006 RSV Adult > 60+ Yrs or (1 - 1-dose 75+ series) 2016 COVID-19 Vaccine (3 - 2023-2 5 season) 2024 12/04/2020, 11/12/2020 Influenza Vaccine (#1) 2024 DTap / Tdap / Td (2 - Td or Tdap) 03/14/2034 03/14/2024 Hepatitis B Vaccines Aged Out No long er eligible based on patient's age to complete this topic RSV Ped < 20 months Aged Out No longe r eligible based on patient's age to complete this topic Care Teams Energy Efficiency Specialist Relationship Specialty Start Date End Date Marvel Dia MD PCP - General Internal Medicine 07/21/24
--- OUTSIDE RECORDS SUMMARY | 2024-10-26 12:01 | XMS_ITS | Continuity of Care Document ---
Author Organization [facility] Address [address] [place] [id number]- Care Team Providers Care 7Th Grade Teacher Name Role Phone Marvel Dia MD Primary Care Physician En[place] [facility] [place] Date(s): 08/30/24 - 09/29/24 [facility] [address] [place] [phone]- Attending Physician: Ramona Ferguson Admitting Physician: Ramona Ferguson Referring Physician: AdmtrRamona Encounter Type: Triage Allergies, Adverse Reactions, Alerts Substance Criticality Severity Reaction Reaction Severity Status Keflex Active Macrobid Active Zoloft rash Active Flagyl Active Diovan Active Avelox rash Active amLODIPine Active Augmentin Active Sulfur rash Active Medications acetaminophen 325 mg oral tablet 650 mg, By Mouth, Every 4 hours, PRN, Temperature Greater than 100.5, Refills 0, Maintenance, Pain , Mild, 07/26/24 9:47:00 AM EDT, Partial fill upon patient request if the prescription is for a schedule II opioid drug. Start Date: 07/26/24 Status: Ordered Repeat number: 1 Check Basic metabolic panel on 08/02/24 and please fax result to PMD Marvel Malik MD. Thanks. Check Basic metabolic panel on 08/02/24 and please fax result to PMD Marvel Malik MD. Thanks., See Instructions, # 1 each, Refills 0, Tot. Refills 0, Maintenance, Check Basic metabolic panel on 08/02/24 and please fax result to PMD Marvel Malik MD. Thanks., 07/26/24 9:58:00 AM EDT, Supply Start Date: 07/26/24 Status: Ordered Quantity: 1.0 Unit: each Repeat number: 1 Indication: Acute kidney failure, unspecified clindamycin 150 mg oral capsule 3 capsule = 450 mg, By Mouth, 3 times a day, for 5 days, # 45 capsule, 0 Refills, Acute 10/04/24 5:02:00 PM EST, 09/29/24 5:02:00 PM EST, Capsule, [facility]/pharmacy #[id number], Partial fill upon patient request ifthe prescription is for a schedule II opioid drug., 162, cm, 08/30/24 13:47:00 EST, Height, 56, kg, 07/22/24 23:39:00 EDT, Dry Weight Start Date: 09/29/24 Stop Date: 10/04/24 Status: Ordered Quantity: 45.0 Unit: capsule Repeat number: 1 hydrochlorothiazide 12.5 mg oral tablet See Instructions, 1 tablet By Mouth every other day, # 15 tablet, 6 Refills, Maintenance, 03/15/24 3:01:00 PM EDT, [facility]/pharmacy #[id number], Partial fill upon patient request if the prescription is for a schedule II opioid drug., 162, cm, 03/15/24 14:33:00 EDT, Height, 56.7, kg, 06/25/23 12:20:00 EDT, DryWeight Start Date: 03/15/24 Status: Ordered Quantity: 15.0 Unit: tablet Repeat number: 7 hydroxyzine hydrochloride 0 Refills, Maintenance, 08/30/24 1:47:00 PM EST, Partial fill upon patient request if the prescription is for a schedule II opioid drug. Start Date: 08/30/24 Status: Ordered Repeat number: 1 Lorazepam = 0.5 mg, By Mouth, Daily at bedtime, PRN as needed for anxiety, 0 Refills, Maintenance, 09/27/21 11:52:00 AM EST, Partial fill upon patient request if the prescription is for a schedule II opioid drug. Start Date: 09/27/21 Status: Ordered Repeat number: 1 Pepcid 20 mg oral tablet 2 tablet = 40 mg, By Mouth, 2 times a day, 0 Refills, Maintenance, 03/15/24 2:32:00 PM EDT, Partial fill upon patient request if the prescription is for a schedule II opioid drug. Start Date: 03/15/24 Status: Ordered Repeat number: 1 predniSONE 2.5 mg oral tablet = 2.5 mg, By Mouth, Daily, # 30 tablet, 0 Refills, Maintenance, 07/26/24 12:45:00 PM EDT, Tablet, Partial fill upon patient request if the prescription is for a schedule II opioid drug. Start Date: 07/26/24 Status: Ordered Quantity: 30.0 Unit: tablet Repeat number: 1 Vitamin D 51717 iu oral capsule 50,000 International_Units, By Mouth, Daily, Refills 0, Maintenance, 03/15/24 2:33:00 PM EDT, Partial fill upon patient request if the prescription is for a schedule II opioid drug. Start Date: 03/15/24 Status: Ordered Repeat number: 1 Problem List Condition Confirmation Course Effective Dates Status H ealth Status Informant Anxiety Confirmed Active CREST syndrome Confirmed Active Status post cholecystectomy Confirmed Active Hyperlipidemia Confirmed Active Hypertension Confirmed Active Hypertrophic cardiomyopathy Confirmed Active Social History Social History Type Response Smoking Status Never smoker entered on: 04/07/18 Sex Sex Representation Female (finding) Patient Care team information Care Team Personnel Name: Liliam Jarvis RN Position: [facility] RN Member Role: Primary Care Nurse Name: Lindy Peña Position: [facility] Outreach Member Role: Lifetime Consulting Physician Name: Sobia Peres RN Position: [facility] RN Member Role: Primary Care Nurse Name: South GUADARRAMA, Marvel Caputo Position: Reference Physician Member Role: PCP Address: [address] [place] [address] Telecom: Care Team Related Persons Name: NESHA VALDERRAMA Name: NIHARIKA, BHUMIKAED Insurance Providers Guarantor name: MOISES CROOK Health Plan Information #: 1 Payer: MEDICARE PART B OUTPT Member Number: NA Policy Number: NA Group Number: NA Health Plan Information #: 2 Payer: [facility] Member Number: NA Policy Number: NA Group Number: NA
== END 2024-10-26 10:37 | disposition home or self-care (01) ==
PROVIDERS: PCP Internal Medicine; Visit Provider Internal Medicine Hypertension Specialist
DX: I12.9 Hypertensive chronic kidney disease with stage 1 through stage 4 chronic kidney disease, or unspecified chronic kidney disease (principal); N18.9 Chronic kidney disease, unspecified; M34.1 CR(E)ST syndrome
CPT/HCPCS: 99204

== ENCOUNTER 2024-11-23 10:46 | Outpatient (AMB) | payer MEDICARE, OTHER, SELFPAY ==
[2024-11-23 11:07] VITALS: BP 140/68; BMI 22.7
--- NOTE | 2024-11-23 11:07 | HO.NEPHOV_ITS ---
Vital Signs 11/23/24 11:07 11/23/24 11:24 Height 5 ft 2 in Weight 124 lb BMI 22.7 BP 140/68 H 110/60 Blood Pressure Location Lt brachial Lt brachial Position Sitting Sitting Intake Visit Reasons: 3-4 weeks f/u Bulk Sealer Required: No Accompanied by: Self / Same As Patient Allergies ANGIE Inhibitors Allergy (Unknown, Verified 11/23/24 11:09) Unknown amoxicillin Allergy (Unknown, Verified 11/23/24 11:09) Itching escitalopram Allergy (Unknown, Verified 11/23/24 11:09) Unknown lisinopril Allergy (Unknown, Verified 11/23/24 11:09) Unknown metronidazole Allergy (Unknown, Verified 11/23/24 11:09) Hives moxifloxacin Allergy (Unknown, Verified 11/23/24 11:09) Hives sertraline Allergy (Unknown, Verified 11/23/24 11:09) Unknown Sulfa (Sulfonamide Antibiotics) Allergy (Unknown, Verified 11/23/24 11:09) Unknown Medication List - Last Reconciled 11/23/24 by Gurdeep Campbell MD famotidine 40 mg PO BEDTIME famotidine 20 mg PO DAILY hydrochlorothiazide 6.25 mg PO Q OTHER DAY prednisone 5 mg PO DAILY HPI Comments Details: Pleasant 84 yr old woman referred for CKD She had a syncopal episode in Jun 2024 and 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 Lowest was 98/54 mmHG h/o CREST Was being followed by for a long time and currently has no [facility] follow up 11/23/2024. Home blood pressure readings are excellent in fact some readings were low. When she stops hydrochlorothiazide she develops leg edema therefore she is on a low dose. [facility] Medical History (Updated 10/26/24 @ 10:41 by Gurdeep Campbell MD) Pacemaker (~06/2024) Surgical History Hx of cholecystectomy History of cataract extraction Family History Sister Arthritis Alzheimer disease Mother Cancer of uterus Father Cerebral aneurysm Daughter Stroke Physical Exam Vital Signs: Last Vital Signs BP 110/60 11/23/24 11:24 BMI result Body Mass Index 22.7 Results Reviewed Nephrology Results: Hgb 14.1 g/dl (12.0-16.0) 10/26/24 WBC 8.2 X10*3/uL (4.8-10.8) 10/26/24 Plt Count 338 X10*3/uL (160-400) 10/26/24 Sodium 137 mmol/L (135-145) 10/26/24 Potassium 4.5 mmol/L (3.3-5.1) 10/26/24 Chloride 107 mmol/L (96-108) 10/26/24 Carbon Dioxide 24 mmol/L (22-29) 10/26/24 BUN 26 mg/dL (9-16) H 10/26/24 Creatinine 0.85 mg/dL (0.5-1.4) 10/26/24 Calcium 9.2 mg/dL (8.4-10.2) 10/26/24 PTH Intact 96.5 pg/mL (8.7-77.1) H 10/26/24 Urine Protein Negative mg/dL (Neg-Trace) 10/26/24 Urine Creatinine 56.52 mg/dL 10/26/24 Assessment & Plan Assessment & Plan (1) CKD (chronic kidney disease): Code(s): N18.9 - Chronic kidney disease, unspecified Category: Medical (2) CREST (calcinosis, Raynaud's phenomenon, esophageal dysfunction, sclerodactyly, telangiectasia): Code(s): M34.1 - CR(E)ST syndrome Category: Medical (3) HTN (hypertension): Code(s): I10 - Essential (primary) hypertension Category: Medical Plan 84 yr old woman with CKD 3 in a setting of longstanding HTN and superimposed White coat effect agaisnt a back drop of AV block and s/p PM placement and CREST Probably has HTN -nephrosclerosis No evidence of glomerular nephritis. Urine sediments bland. She had a component of acute kidney injury. MAGUI has resolved. Creatinine is back to 0.85. Monitor BP at home decrease hydrochlorothiazide to 6.25 mg daily Keep I >O Continue to avoid npehrotoxins including NSAIDs Refer to Rhem/ for CREST Orders: Orders Basic Metabolic Panel 6 Months I10 - Essential (primary) hypertension, N18.9 - Chronic kidney disease, unspecified Medications: New hydrochlorothiazide 6.25 mg (1/2 x 12.5 mg) PO DAILY 60 tabs 1RF Coding Level of Care Code Est Pt Level 4 (95343) Diagnoses CKD (chronic kidney disease) N18.9 CREST (calcinosis, Raynaud's phenomenon, esophageal dysfunction, sclerodactyly, telangiectasia) M34.1 HTN (hypertension) I10
[2024-11-23 11:24] VITALS: BP 110/60
--- OUTSIDE RECORDS SUMMARY | 2024-11-23 13:21 | XMS_ITS | Clinical Summary ---
Author Organization [address] [facility] Address [address] [place] [phone] Phone Care Team Providers Care Buffing Wheel Former Machine Name Role Phone Marvel Dia MD Primary Care Provider [phone] Allergies Active Allergy Reactions Criticality Noted Date Comments Pritesh Inhibitors 08/21/2015 Amoxicillin Itching 07/07/2023 Arb-Angiotensin Receptor Antagonist 08/21/2015 Escitalopram Oxalate 06/10/2022 Heart palpation , insomnia , sweats and anxiety Lisinopril 01/15/2022 Metronidazole Medium 12/08/2016 Other Reaction(s): Hives/Urticaria Moxifloxacin 09/02/2007 Other Reaction(s): Hives/Urticaria Sertraline 04/23/2009 Sulfa (Sulfonamide Antibiotics) Itching 08/14/2006 Other Reaction(s): Numbness, tingling or swelling of the lips, tongue or mouth Medications LORazepam (ATIVAN) 0.5 mg tablet TAKE 1 TABLET BY MOUTH DAILY NEEDED FOR ANXIETY FOR UP TO 28 DAYS. 03/14/20 24 Active hydroCHLOROth iazide 12.5 mg tablet Take 1 tablet (12.5 mg total) by mouth every other day. 08/03/20 23 Active FAMOTIDINE ORAL Take by mouth daily. Active predniSONE (DELTASONE) 2.5 mg tablet Take 2.5 mg by mouth as needed. Per shipping agent Active hydrOXYzine HCL (ATARAX) 10 mg tabletIndicat ions:Anxiety TAKE 1 TABLET (10 MG TOTAL) BY MOUTH 2 (TWO) TIMES A DAY IF NEEDED FOR ITCHING. 180 tablet 1 11/21/19 Active hydrOXYzine HCL (ATARAX) 10 mg tabletIndicat ions:Anxiety Take 1 tablet (10 mg total) by mouth 2 (two) times a day if needed for itching. 180 tablet 08/22/20 24 2024 Discontinued Active Problems Problem Noted Date Diagnosed Date [...] Care Team Description 10/14[facility] [address] [place], [place] [address] [address] Marvel Dia MD Nasal Congestion 10/04/2024 11:00 AM EST Office Visit Internal Medicine - [address] [place] [address] Marvel Dia MD Primary hypertension (Primary Dx); Pure hypercholesterolemia; Anxiety 08/31/2024 [facility] [place] [address] Marvel Dia MD Referral (EXTERNAL / NEPHROLOGY) from Last 3 Months Immunizations Name Administration [...] drink = 0.6 oz pur e alcohol) Comments No Sex and Gender Information Value Date Recorded Sex Assigned at Not on file Legal Sex Female 11:43 PM EST Gender Identity Not on file Sexual Orientation Not on file Obstetrics History Last Filed [...] Care Team (Late st Contact Info) Description 04/04/2025 2:30 PM EDT Office Visit Internal Medicine - [address] [phone] Marvel Dia MD [address] [place] [id number] Health Maintenance Due Date Last Done Comments Pneumococcal Vaccine: 50+ Years (1 of 1 - PCV) 1991 RSV Immunization Patients 60+ Years Old (1 [...] patient's age to complete this topic Meningococcal B Vacine Aged Out No lo nger eligible based on patient's age to complete this topic RSV Immunization Patients Under 20 months Aged Out No longer eligible based on patient's age to complete this topic Varicella Vaccines Aged Out No longer eligible based on patient's age to complete this topic Zoster Vaccines Discontinued Procedures Procedure Name Priority Date/Time Associated Diagnosis Comments EXTERNAL CLINICAL LAB 10/27/2024 COMPREHENSIVE METABOLIC PANEL Routine 08/07/2024 2:39 PM EST Unspecified kidney failure DEPRESSION SCREENING Routine 03/14/2024 LIPID PANEL Routine 03/14/2024 FALLS RISK ASSESSMENT Routine 05/05/2023 from Last 3 Months or Most Recently Relevant to Health Maintenance Results * External clinical lab (10/27/2024) Provider [facility] LAB BLOOD ORDERABLES Fin al Result * (ABNORMAL) Comprehensive metabolic panel (08/07/2024 2:39 PM EST) Sodium 139 133 - 145 mmol/L LAB CHEMISTRY METHOD 08/07/2024 8:[address] [facility] Potassium 4.2 3.5 - 5.5 [...] g/dL LAB CHEMISTRY METHOD 08/07/2024 8:[address] [facility] Albumin 4.0 3.2 - 5.0 g/dL LAB CHEMISTRY METHOD 08/07/2024 8:[address] [facility] Total Bilirubin 0.4 0.0 - 1.4 mg/dL LAB CHEMISTRY METHOD 08/07/2024 8:[address] [facility] Blood Venous blood specimen / Unknown Venipuncture / Unknown 08/07/2024 2:39 PM EST 08/07/2024 2:40 PM EST Marvel Dia MD LAB BLOOD ORDERABLES Final Res ult [facility] [address] [place] [address], * Depression Screening (03/14/2024) Pathologist [facility] Depression Screening abstracted Sarahi Provider HEALTH MAINTENANCE Final Result * (ABNORMAL) Lipid panel (03/14/2024) Pathologist [facility] LDL/HDL Ratio 3 0 - 4 Triglycerides 62 0 - 150 mg/dL Cholesterol 238(A) 0 - 200 mg/dL HDL 85 >=40 mg/dL LDL Cholesterol 141(A) 0 - 100 mg/dL Blood Venous blood specimen / Unknown Historical Provider LAB BLOOD ORDERABLES Violette l Result * Falls Risk Assessment (05/05/2023) Falls Risk Assessment abstracted Historical Provider HEALTH MAINTENANCE Final Result from Last 3 Months or Most Recently Relevant to Health Maintenance Insurance MEDICARE COUNT INCLUDES [facility] Care Teams Buffing Wheel Former Machine Relationship Specialty Start Date End Date Marvel Dia MD [address] [place] [phone] PCP - General Internal Medicine 09/30/24
--- OUTSIDE RECORDS SUMMARY | 2024-11-23 13:21 | XMS_ITS | Clinical Summary ---
Author Organization [facility] Address [address] [place] [address] Care Team Providers Care Electronic Service Technician Name Role Phone Marvel Dia MD Primary Care Provider [phone] Medications No known medications Active Problems No [...] age to complete this topic Care Teams Electronic Service Technician Relationship Specialty Start Date End Date Marvel Dia MD PCP - General Internal Medicine 07/21/24
--- OUTSIDE RECORDS SUMMARY | 2024-11-23 13:21 | XMS_ITS | Continuity of Care Document ---
Author Organization [facility] Address [address] [place] [phone]- Care Team Providers Care Business Development Representative Name Role Phone Marvel Dia MD Primary Care Physician [phone] [place] [facility] [place] 10/06/24 - 11/05/24 [facility] [address] [place] [phone]- Attending Physician: Ramona Ferguson Admitting Physician: AdmRamona monroy Referring Physician: AdmtrRamona Encounter Type: Triage Allergies, Adverse Reactions, Alerts Substance Criticality Severity Reaction Reaction Severity Status Keflex Active Macrobid Active Zoloft rash Active Flagyl Active Augmentin Active Diovan Active Avelox rash Active Sulfur rash Active amLODIPine Active Medications acetaminophen 325 mg oral tablet [...] number: 1 Indication: Acute kidney failure, unspecified hydrochlorothiazide 12.5 mg oral tablet See Instructions, 1 tablet By Mouth every other day, # 15 tablet, 6 Refills, Maintenance, 03/15/24 3:01:00 PM EDT, [facility]/pharmacy #[id number], Partial fill upon patient request if [...] Unit: tablet Repeat number: 1 Vitamin D 15646 iu oral capsule 50,000 International_Units, By Mouth, [...] Team Personnel Name: Liliam Jarvis RN Position: [facility] RN Member Role: Primary Care Nurse Name: Lindy Peña Position: [facility] Outreach Member Role: Lifetime Consulting Physician Name: Sobia Peres RN Position: [facility] RN Member Role: Primary Care Nurse Name: South GUADARRAMA, Marvel Caputo Position: Reference Physician Member Role: PCP Address: [address] [place] [address] Telecom: Care Team Related Persons Name: JANNIE NESHA Name: ANJELICA BUNDY Insurance Providers Guarantor name: MOISES CROOK Health Plan Information #: 1 Payer: MEDICARE PART B OUTPT Member Number: NA Policy Number: NA Group Number: NA Health Plan Information #: 2 Payer: [facility] INDN Member Number: NA Policy Number: NA Group Number: NA
== END 2024-11-23 11:31 | disposition home or self-care (01) ==
PROVIDERS: PCP Internal Medicine; Visit Provider Internal Medicine Hypertension Specialist
DX: I12.9 Hypertensive chronic kidney disease with stage 1 through stage 4 chronic kidney disease, or unspecified chronic kidney disease (principal); N18.9 Chronic kidney disease, unspecified; M34.1 CR(E)ST syndrome
CPT/HCPCS: 99214

== ENCOUNTER → 2024-11-23 10:46 | Outpatient (BNVA) | payer MEDICARE, OTHER, SELFPAY | PROVIDERS: PCP Internal Medicine; Visit Provider Internal Medicine Hypertension Specialist | DX: I12.9 Hypertensive chronic kidney disease with stage 1 through stage 4 chronic kidney disease, or unspecified chronic kidney disease (principal); N18.30 Chronic kidney disease, stage 3 unspecified; M34.1 CR(E)ST syndrome | CPT/HCPCS: 99212 ==

== ENCOUNTER 2025-02-15 10:46 | Outpatient (AMB) | payer OTHER, MEDICARE, SELFPAY ==
[2025-02-15 11:04] VITALS: BP 110/68; PULSE 79; O2SAT 95; BMI 23.0
--- NOTE | 2025-02-15 11:04 | A.OFFVIS_ITS ---
Vital Signs 02/15/25 11:04 Height 5 ft 2 in Weight 125 lb 10.616 oz BMI 23.0 BP 110/68 Blood Pressure Location Lt brachial Position Sitting Pulse 79 Pulse Source Pulse Oximeter Pulse Oximetry (%) 95 Oxygen Delivery Method Room Air Intake Visit Reasons: CR(E)ST syndrome Intake Note: Patient presents for cr(e)st syndrome. Allergies ANGIE Inhibitors Allergy (Unknown, Verified 02/15/25 11:06) Unknown amoxicillin Allergy (Unknown, Verified 02/15/25 11:06) Itching escitalopram Allergy (Unknown, Verified 02/15/25 11:06) Unknown lisinopril Allergy (Unknown, Verified 02/15/25 11:06) Unknown metronidazole Allergy (Unknown, Verified 02/15/25 11:06) Hives moxifloxacin Allergy (Unknown, Verified 02/15/25 11:06) Hives sertraline Allergy (Unknown, Verified 02/15/25 11:06) Unknown Sulfa (Sulfonamide Antibiotics) Allergy (Unknown, Verified 02/15/25 11:06) Unknown HPI HPI CR(E)ST syndrome: Details: New patient visit. She was diagnosed with CREST [address] Pearl. She has skin lesions on her hands, talengectasia, and past history of GERD. She no longer experiences GERD. She has been prednisone since diagnosis. She takes 2.5 mg prednisone daily since diagnosis for joint pain. Every 3 day she takes 5 mg due to increased joint pain usually affecting her shoulders. She was diagnosed with rotator cuff tears. She has completed physical therapy and tries to remain active. She has no new joint swelling. No new skin lesions, skin tightening, fevers, dyspnea, pleurisy, urinary symptoms, paraesthesia. Her Raynaud's syndrome is controlled in his active sometimes with the cold weather but tolerable. She has dry eyes, dry mouth and thinning of hair. Morning stiffness is 30 minutes. 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 She has history of congestive heart failure and CKD. No rheumatological family history Retired She does not drink alcohol or use any recreational drugs. She is an ex-smoker. She used to smoke a half a pack a day 25 years ago. [facility] Medical History (Updated 02/15/25 @ 12:29 by Hector Escalante MD) Anxiety Pacemaker (~06/2024) Surgical History Hx of cholecystectomy History of cataract extraction Family History Sister Arthritis Alzheimer disease Mother Cancer of uterus Father Cerebral aneurysm Daughter Stroke Social History (Updated 02/15/25 @ 11:26 by Glory Llamas [facility]) Patient Tobacco Use Status: Former Tobacco user Years Smoked: Quit 25 years ago. Physical Exam Vital Signs: Last Vital Signs Pulse 79 02/15/25 11:04 BP 110/68 02/15/25 11:04 Pulse Ox 95 02/15/25 11:04 Oxygen Delivery Method Room Air 02/15/25 11:04 BMI result Body Mass Index 23.0 Const Other: General: Comfortable CVS: RRR Respiratory: clear to auscultation bilaterally. Good respiratory effort Skin: She has telangiectasia palmar aspect of both hands and anterior chest no sclerodactyly or skin tightening. MSK: No tenderness to palpate. No synovitis. Normal range of motion of upper extremity and lower extremities. Assessment & Plan Assessment & Plan (1) CREST (calcinosis, Raynaud's phenomenon, esophageal dysfunction, sclerodactyly, telangiectasia): Comment: Presenting with telangiectasia, Raynaud's phenomenon and GERD diagnosed 10 years ago. She continues to have telangiectasia with tolerable Raynaud's phenomenon. She has been on long-term low-dose prednisone for joint pain. At this time she does not have evidence of inflammatory arthritis. We will start tapering prednisone slowly we discussed the risks and benefits of prednisone. She has sicca symptoms. I will workup with labs for secondary Sjogren syndrome. Code(s): M34.1 - CR(E)ST syndrome Category: Medical Plan: She will take prednisone 2.5 mg daily. She will not take additional 5 mg tablet when she has increased pain. She will try Tylenol Arthritis 650 mg 1-2 tablets PRN joint pain I have ordered antibodies associated with systemic sclerosis and Sjogren syndrome Avoid oral NSAIDs due to history of CKD. She follows with Nephrology. Bone density ordered due to long-term use of prednisone. She is at risk for osteoporosis. 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 Category: Medical Plan: See above (3) CKD (chronic kidney disease): Code(s): N18.9 - Chronic kidney disease, unspecified Category: Medical Plan: See above Orders: Orders XR DEXA appendicular skeleton Today M34.1 - CR(E)ST syndrome, Z79.52 - terminal operations supervisor (current) use of systemic steroids XR DEXA axial skeleton Today M34.1 - CR(E)ST syndrome, Z79.52 - terminal operations supervisor (current) use of systemic steroids Scleroderma 70 Antibody Today M34.1 - CR(E)ST syndrome, N18.9 - Chronic kidney disease, unspecified, Z79.52 - terminal operations supervisor (current) use of systemic steroids Sjogren's Antibodies Today M34.1 - CR(E)ST syndrome, N18.9 - Chronic kidney disease, unspecified, Z79.52 - terminal operations supervisor (current) use of systemic steroids Alanine Aminotransferase Today Z79.60 - terminal operations supervisor (current) use of unspecified immunomodulators and immunosuppressants Aspartate Amino Transferase Today Z79.60 - terminal operations supervisor (current) use of unspecified immunomodulators and immunosuppressants Anti-Centromere B Antibodies Today M34.1 - CR(E)ST syndrome, N18.9 - Chronic kidney disease, unspecified, Z79.52 - terminal operations supervisor (current) use of systemic steroids Coding Level of Care Code New Pt Level 4 (83391) Diagnoses CREST (calcinosis, Raynaud's phenomenon, esophageal dysfunction, sclerodactyly, telangiectasia) M34.1 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
--- OUTSIDE RECORDS SUMMARY | 2025-02-15 12:16 | XMS_ITS | Data Portability ---
Author Organization [place] - [facility], Allergy Address [address] [address] Care Team Providers Care Correctional Lieutenant Name Role Phone RAY PERDOMO Primary Care Provider [phone] Assessment No assessment recorded. Plan of Treatment Reminders Order Date Submit Date Provider Last Modified By Organization Details Last Modified Time Details Appointments Hearing Test 2025 02:00P M Hearing Test Not available Not available Not available Establish ed 30 2025 02:30P M SHER RUDD MD Not available Not available Not available Lab None recorded. Referral None recorded. Procedures None recorded. Surgeries None recorded. Imaging None recorded. Medication Orders None recorded. Patient TargetsNo targets recorded. Patient Instructions Encounter Date Encounter Id Patient Instructions Last Modified By Organization Details Last Modified Time 01/16/2025 [id number] nosebleed information jschreibstein Not available 01/16/2025 16:19:50 Reason for Referral None Reported. Results Created Date Observation Date Name Description Value Unit Range Abnormal Flag Note LastModifiedBy Organization Detail LastModifiedTime 01/18/20 25 audio gram No observ ation record ed. BARCODE Not Available 2024 09:47:49 Result Notes None recorded. Problems Name Problem SNOMED Code Status Onset Date Resolution Date Notes Provider Name and Address Organization Details Recorded Time Disorder of nasal sinus 7851520 Active 2022 Other specified disorders of nose and nasal sinuses; Note: Date Diagnosed : 3 3:05 PM (J34.89) Not Available [facility] 4 02:40:48 Disorder of the nose 18025936 Active 2022 Other specified disorders of nose and nasal sinuses; Note: Date Diagnosed : 3 3:05 PM (J34.89) Not Available [facility] 4 02:40:48 Pain of right temporoma ndibular joint 96608012987 626803 Active 2020 Arthralgi a of right temporoma ndibular joint; Note: Date Diagnosed : 04/08/2021 11:15 AM (M26.621) Not Available [facility] 4 02:40:54 Impacted cerumen in left ear 86291301547 96712 Active 2021 Impacted cerumen, left ear; Note: Date Diagnosed : 07/31/2022 11:52 AM (H61.22) Not Available [facility] 4 02:40:50 Sensorine ural hearing loss of bilateral ears 116384528 Active 2019 Sensorine ural hearing loss, bilateral ; Note: Date Diagnosed : 05/10/2020 10:35 AM (H90.3) Not Available [facility] 4 02:40:53 Abnormal auditory perceptio n 23447461 Active 2019 Other abnormal auditory perceptio ns, right ear; Note: Date Diagnosed : 12/28/2019 2:09 PM (H93.291) Not Available [facility] 4 02:40:53 Posterior rhinorrhe a 77426546 Active 2019 Postnasal drip; Note: Date Diagnosed : 05/10/2020 10:10 AM (R09.82) Not Available [facility] 4 02:40:49 Otalgia of right ear 9270522260 Active 2019 Otalgia, right ear; Note: Date Diagnosed : 12/28/2019 2:09 PM (H92.01) Not Available [facility] 4 02:40:52 Bilateral disorder of Eustachia n tubes 37521679357 78774 Active 2019 Other specified disorders of Eustachia n tube, bilateral ; Note: Date Diagnosed : 05/10/2020 10:51 AM (H69.83) Not Available [facility] 4 02:40:50 Impacted cerumen of bilateral ears 09240374763 68170 Active 2024 SHER FRANK MD [address] [place] [address], [place], [address] , [place] - [facility] 5 15:02:22 Bleeding from nose 788492905 Active 2024 SHER FRANK MD 100 [facility],[address], [address] , [place] - [facility] 15:02:27 Problem Notes None recorded. Procedures Surgical History Date Name Laterality Status Provider Name and Address Organization Details Recorded Time 5 Air & Speech Audio with Tymps - 95226, 26075 & 63615 completed ARIANA DELGADO AUD [address] [facility] [place] [address], [place], [address], [place] - [facility] 01/16/2025 15:14:44 Cerumen removal without microscope bilat completed SHER AVELAR MD 100 [facility],[place] [address], [place], [address], [facility] - [facility] 01/16/2025 15:02:42 cardiac pacemaker procedure completed SHER AVELAR MD 100 [facility],[place] [address], [place], [address], [place] - [facility] 01/16/2025 15:01:45 Imaging Results Imaging Date Name Status LastModified by Organiz ation Details LastModified Time 01/17/2025 audiogram completed BARCODE Information no t available 01/17/2025 09:47:49 Procedure Notes None recorded. Medical Equipment None Reported. Allergies Allergen ID Allergen Name Allergen Category Reaction Reaction Severity Criticality Documentation Date Start Date Code Code System Note Provider Name and Address Organization Details Recorded Time 18110 ketotifen fumarate medicatio n other Not available Not available 02/09/2024 42075 RxNorm React ion: unkno wn, unspe cifie d;; Not Available [facility] 4 01:05:25 12384 Avelox medicatio n other Not available Not available 02/09/2024 42928 6 RxNorm React ion: unkno wn, unspe cifie d;; Not Available [facility] 4 01:05:27 10527 metronida zole hydrochlo ride medicatio n other Not available Not available 02/09/2024 47016 RxNorm React ion: unkno wn, unspe cifie d;; Not Available [facility] 4 01:05:28 47385 Substance with sulfonami de structure and antibacte rial mechanism of action (substanc e) medicatio n other Not available Not available 02/09/2024 78681 8003 SNOMED React ion: unkno wn, unspe cifie d;; Not Available [facility] 4 01:05:30 Medications Name Sig Start Date Stop Date Status Note LastModified by Organization Details LastModified Time azithromy eitan 250 mg tablet TAKE 2 TABLETS BY MOUTH TODAY, THEN TAKE 1 TABLET DAILY FOR 4 DAYS DIRECTED 01/16 completed Not Available Not Available Not Available famotidin e 40 mg tablet TAKE 1 TABLET BY MOUTH TWICE A DAY 01/16 completed Not Available Not Available Not Available prednison e 5 mg tablet TAKE 1 TABLET BY MOUTH DAILY WITH BREAKFAS T NEEDED active Not Available Not Available No t Available clindamyc in HCl 150 mg capsule TAKE 3 CAPSULES BY MOUTH 3 TIMES A DAY FOR 5 DAYS 01/16 completed Not Available Not Available Not Available lorazepam 0.5 mg tablet TAKE 1 TABLET BY MOUTH DAILY NEEDED FOR ANXIETY FOR UP TO 28 DAYS. 01/16 completed Not Available Not Available Not Available mupirocin 2 % topical ointment Apply 1 a small amount every eight hours 01/16 completed Medicati on ID: [id number] D uration Value: 7 Brand Name: mupiroci n Send Method: E-Prescr ibed Sub s Allowed: subs OK Speci al Instruct ion: place in the nasal cavity 3 times daily after warm compress es Medic ationGen ericName : mupiroci n Not Available Not Available Not Available Pepcid 20 mg tablet 01/16 completed Medicati on ID: [id number] B rand Name: Pepcid S end Method: E-Prescr ibed Sub s Allowed: subs OK Medic ationGen ericName : Pepcid Not Available Not Available Not Available hydroxyzi ne HCl 10 mg tablet TAKE 1 TABLET (10 MG TOTAL) BY MOUTH 2 (TWO) TIMES A DAY IF NEEDED FOR ITCHING. 01/16 completed Not Available Not Available Not Available TobraDex 0.3 %-0.1 % eye drops,graeme pension 04/08 completed Medicati on ID: [id number] P jenniferritoño d By Name: Sher alfaro M.D. Bra ximena Name: TobraDex Send Method: E-Prescr ibed Sub s Allowed: subs OK Speci al Instruct ion: Instill 3 drops in the affect ear BID for 14 days Med icationG enericNa me: TobraDex Not Available Not Available Not Available escitalop naresh 5 mg tablet 07/28 completed Medicati on ID: [id number] B rand Name: escitalo pram oxalate Send Method: E-Prescr ibed Sub s Allowed: subs OK Medic ationGen ericName : escitalo pram oxalate Not Available Not Available Not Available nitrofura ntoin monohydra te/macroc rystals 100 mg capsule TAKE 1 CAPSULE BY MOUTH TWICE A DAY FOR 5 DAYS 01/16 completed Not Available Not Available Not Available hydrochlo rothiazid e 12.5 mg tablet TAKE 1/2 TAB BY MOUTH EVERY DAY active Not Available Not Available No t Available Vitals Date Recorded Body height Body mass index (BMI) Body weight Provider Name and Address Organization Details Last Updated DateTime 01/16/2025 160.02 cm 21.8 kg/m2 07082.86 g Kaley Varela [place] - [facility] 01/16/2025 14:41:31 Social History None recorded. Functional Status None recorded. Mental Status None recorded. Family History Nothing Reported. Medical History No medical history recorded. Gynecological HistoryNo gynecological history recorded. Obstetrics History GPAL:G 0 P 0 0 0 0 Past Encounters Encounter ID Performer Location Encounter Start Date Encounter Closed Date Diagnosis/Indication Diagnosis SNOMED-CT Code Diagnosis ICD10 Code Diagnosis Note [id number] SHER FRANK MD [facility] [address] [address] 01/16/2025 14:22:05 01/16/2025 15:27:07 Impacted cerumen of bilateral ears 4535092034 867081 H61.23 Suggested 3 drops distilled vinegar in each ear twice weekly to prevent the buildup of cerumen Bleeding from nose 30081 6005 R04.0 Conservati ve epistaxis precaution s recommende d Sensorineu ral hearing loss of bilateral ears 980886804 H90.3 Cerumen removed bilaterall y. Audiometri c testing reviewed and stable [id number] VERNA STEINER [facility] [address] [place] [address] 01/16/2025 15:12:04 01/16/2025 16:57:13 Sensorineural hearing loss of bilateral ears 320866660 H90.3 Audiologic al evaluation results: 01/16/2025 Right ear: {{Normal N ormal through 2 kHz Mild M oderate Mo derately-s evere Teresa re Profoun d Normal through 2 kHz4#}} {{hearing hearing. s loping to a mild slopi ng to a moderate* sloping to moderately severe slo ping to severe slo ping to profound f lat high frequency low frequency mid frequency cookie bite villalpando curve}} {{with sen sorineural hearing loss with* cond uctive hearing loss with mixed hearing loss with}} {{excellen t* good fa ir poor no measurable }} word recognitio n. Left ear: {{Normal N ormal through 2 kHz Mild M oderate Mo derately-s evere Teresa re Profoun d Normal through 2 kHz4#}} {{hearing hearing. s loping to a mild slopi ng to a moderate* sloping to moderately severe slo ping to severe slo ping to profound f lat high frequency low frequency mid frequency cookie bite villalpando curve}} {{with sen sorineural hearing loss with* cond uctive hearing loss with mixed hearing loss with}} {{excellen t* good fa ir poor no measurable }} word recognitio n. Tympanomet ry: Right Ear:{{Type A* Type A with rounded peak Type A with double peak Type As Type As with rounded peak Type Ad Type C Type C, shallow & rounded peak Type B Type B with large volume Cou ld not maintain a hermetic seal}} Left Ear:{{Type A* Type A with rounded peak Type A with double peak Type As Type As with rounded peak Type Ad Type C Type C, shallow & rounded peak Type B Type B with large volume Cou ld not maintain a hermetic seal}} Health Concerns Section Related Observation LastModified by Organization Detai ls LastModified Time None Recorded Concern Status LastModified by Organization Details LastModified Time None Recorded Advance Directives Directive None Recorded Payers Insurance Date Sequence Insurance Name Policy Number Policy Millan Covered Member ID Millan Member ID Guarantor Name 01/09/2025 1 MEDICARE B-[place]: [facility] [employer] Chichi Edgarroianni [id number] Chichi Leonard Kelin 01/16/2025 2 [facility] [id number] Chichi Leonard Kelin [id number] Chichi Leonard Kelin Notes Date Note Type Note Provider Name and Address Organization Details Recorded Time 01/16/2025 text/html Since last visit she had a pacemaker placed about 6 months ago. Some lightheadedness when rolling to her left side but no true vertigo. Occasional epistaxis left side. This has been a chronic problem for which she had cautery many many years ago. Otherwise doing well SHER AVELAR MD [address] [place] [address], [address], [facility] - [facility] 01/16/2025 16:20:00 OBGyn Episode No OBEpisode recorded.
--- OUTSIDE RECORDS SUMMARY | 2025-02-15 12:17 | XMS_ITS | Clinical Summary ---
Author Organization [address] [facility] Address [address] [place] [address] Phone Care Team Providers Care Voice Pathologist Name Role Phone Marvel Dia MD Primary Care Provider [phone] Allergies Active Allergy Reactions Criticality Noted Date [...] FOR ANXIETY FOR UP TO 28 DAYS. 4 Active hydroCHLOROthi azide 12.5 mg tablet Take 1 tablet (12.5 mg total) by mouth every other day. 3 Active FAMOTIDINE ORAL Take by mouth daily. Active predniSONE (DELTASONE) 2.5 mg tablet Take 2.5 mg by mouth as needed. Per wood club neck whipper Active hydrOXYzine HCL (ATARAX) 10 mg tabletIndicati ons:Anxiety TAKE 1 TABLET (10 MG TOTAL) BY MOUTH 2 (TWO) TIMES A DAY IF NEEDED FOR ITCHING. 180 tablet 1 5 Active Active Problems Problem Noted Date Diagnosed Date Pacemaker 08/10/2024 ECG abnormal 11/26/2022 Overview (07/28/2024): Last Assessment & Plan: Her EKG has been stable. She does have anterolateral T wave inversions. 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 This has been unchanged and we will continue to monitor Hypertrophic cardiomyopathy (CMS/HCC V24, CMS/HC C V28) 11/26/2022 Overview (07/28/2024): Last Assessment & Plan: [...] very sparingly with excellent benefit CREST syndrome (CMS/HCC V24, CMS/HCC V28) 2019 Overview (07/28/2024): Last Assessment & Plan: We [...] not on any lipid-lowering agents. Sjogrens syndrome (CMS/HCC V24) 01/19/2018 GERD (gastroesophageal reflux disease) 7 Cataract 04/13/2017 Glaucoma 11/01/2015 Vitamin D deficiency 10/05/2015 Immunizations Name Administration Dates Next Due Tdap [...] DX:Hyperlipidemi a Hypertension 04/09/2018 DX:Hypertension Sjogrens syndrome (CMS/HCC V24) 01/19/2018 DX:Sjogrens syndrome (HCC) Vitamin D deficiency 10/05/2015 DX:Vitamin D deficiency Lumbar back pain DX:Lumbar back pain CKD (chronic kidney disease) stage 3, GFR 30-59 ml/min (CMS/HCC V24, CMS/HCC V28) 10/02/2020 DX:CKD (chronic kidney disea se) stage 3, GFR 30-59 ml/min (HCC) CREST syndrome (CMS/HCC V24, CMS/HCC V28) DX:CREST syndrome (HCC) Hypertrophic cardiomyopathy (CMS/HCC V24, CMS/HCC V28) 11/26/2022 DX:Hypertrophic cardiomyopat hy (HCC) Tricuspid regurgitation 11/26/2022 DX:Tricu spid regurgitation [...] PM EDT Office Visit Internal Medicine - [address] [phone] Marvel Dia MD [address] [place] [phone] Health Maintenance Due Date Last Done Comments Pneumococcal Vaccine: 50+ Years (1 of 1 - PCV) 1991 RSV Immunization Adult Patients (1 - 1-dose 75+ series) 2016 COVID-19 Vaccine (3 - Pfizer risk series) 01/01/2021 12/04/2020, 11/12/2020 Medicare Annual Wellness Visit 09/06/2022 Osteoporosis Screening (Bone Density Screening) 09/06/2022 Social Influencers of Health Screening 09/06/2022 Falls Risk Assessment 05/05/2024 05/05/2023 Depression Screening 03/14/2025 03/14/2024 Influenza Vaccine (Season Ended) 2025 Hypertension/CHF/CAD Annual BMP Blood Test 08/07/2025 08/07/2024, 07/21/2024, 07/21/2024, Additional history exists Cholesterol Screening (Lipid Panel) 11/29/2029 11/29/2024, 03/14/2024, 03/14/2024 DTaP,Tdap,and Td Vaccines (2 - [...] age to complete this topic Meningococcal B Vaccine Aged Out No l onger eligible based on patient's age to complete this topic RSV Immunization Patients Under 20 months Aged Out No longer eligible based on patient's age to complete this topic Varicella Vaccines Aged Out No longer eligible based on patient's age to complete this topic Zoster Vaccines Discontinued Procedures Procedure Name Priority Date/Time Associated Diagnosis Comments LIPID PANEL WITH REFLEX TO DIRECT LDL Routine 11/29/2024 8:38 AM EST Pure hypercholesterolemia COMPREHENSIVE METABOLIC PANEL Routine 08/07/2024 2:39 PM EST Unspecified kidney failure DEPRESSION SCREENING Routine 03/14/2024 FALLS RISK ASSESSMENT Routine 05/05/2023 from Last 3 Months or Most Recently Relevant to Health Maintenance Results * (ABNORMAL) Lipid panel with reflex to direct LDL (11/29/2024 8:38 AM EST) Cholesterol 244(H) 0 - 200 mg/dL LAB CHEMISTRY METHOD 11/29/2024 1:30 PM EST [facility] Triglycerides 112 0 - 150 mg/dL LAB CHEMISTRY METHOD 11/29/2024 1:30 PM EST [facility] HDL 80 >=40 mg/dL LAB CHEMISTRY METHOD 11/29/2024 1:30 PM EST [facility] LDL Calculated 142(H) 0 - 100 mg/dL LAB CHEMISTRY METHOD 11/29/2024 1:30 PM [facility] VLDL Cholesterol Abelardo 22.4 mg/dL LAB CHEMISTRY METHOD 11/29/2024 1:30 PM [facility] Non HDL Chol. (LDL+VLDL) 164(H) <145 mg/dL LAB CHEMISTRY METHOD 11/29/2024 1:30 PM [facility] Chol/HDL Ratio 3.1 0.0 - 4.4 LAB CHEMISTRY METHOD 11/29/2024 1:30 PM [facility] Blood Venous blood specimen / Unknown Venipuncture / Unknown 11/29/2024 8:38 AM EST 11/29/2024 8:39 AM EST us Marvel Dia MD LAB BLOOD ORDERABLES Final Res ult [facility] [address] [place] [address], * (ABNORMAL) Comprehensive metabolic panel (08/07/2024 2:39 PM EST) Sodium 139 133 - 145 mmol/L LAB CHEMISTRY METHOD 08/07/2024 8:30 PM [facility] Potassium 4.2 3.5 - 5.5 mmol/L LAB CHEMISTRY METHOD 08/07/2024 8:30 PM [facility] Chloride 105 96 - 110 mmol/L LAB CHEMISTRY METHOD 08/07/2024 8:30 PM [facility] CO2 25 21 - 32 mmol/L LAB CHEMISTRY METHOD 08/07/2024 8:30 PM [facility] Anion Gap 9 3 - 11 LAB CHEMISTRY METHOD 08/07/2024 8:30 PM [facility] Glucose 128(H) 70 - 100 mg/dL LAB CHEMISTRY METHOD 08/07/2024 8:30 PM [facility] BUN 27(H) 5 - 25 mg/dL LAB CHEMISTRY METHOD 08/07/2024 8:30 PM [facility] Creatinine 1.43(H) 0.50 - 1.10 mg/dL LAB CHEMISTRY METHOD 08/07/2024 8:30 PM [facility] eGFR 36(L) >=60 mL/min/1. 73m2 LAB CHEMISTRY METHOD 08/07/2024 8:30 PM [facility] Comment:Calculation based on the??Chronic Kidney Disease Epidemiology Collaboration (CKD-EPI) equation refit??without adjustment for race. BUN/Creatinine Ratio 18.9 LAB CHEMISTRY METHOD 08/07/2024 8:30 PM [facility] Calcium 9.8 8.5 - 10.5 mg/dL LAB CHEMISTRY METHOD 08/07/2024 8:30 PM [facility] AST (SGOT) 26 10 - 42 unit/L LAB CHEMISTRY METHOD 08/07/2024 8:30 PM [facility] ALT (SGPT) 26 10 - 60 unit/L LAB CHEMISTRY METHOD 08/07/2024 8:30 PM [facility] Alkaline Phosphatase 65 42 - 121 unit/L LAB CHEMISTRY METHOD 08/07/2024 8:30 PM [facility] Total Protein 7.0 6.0 - 8.0 g/dL LAB CHEMISTRY METHOD 08/07/2024 8:30 PM [facility] Albumin 4.0 3.2 - 5.0 g/dL LAB CHEMISTRY METHOD 08/07/2024 8:30 PM [facility] Total Bilirubin 0.4 0.0 - 1.4 mg/dL LAB CHEMISTRY METHOD 08/07/2024 8:30 PM [facility] Blood Venous blood specimen / Unknown Venipuncture / Unknown 08/07/2024 2:39 PM EST 08/07/2024 2:40 PM EST Marvel Dia MD LAB BLOOD ORDERABLES Final Res ult [facility] [address] [place] [address], * Depression Screening (03/14/2024) Depression Screening abstracted Historical Provider HEALTH MAINTENANCE Final Result * Falls Risk Assessment (05/05/2023) Falls Risk Assessment abstracted Historical Provider HEALTH MAINTENANCE Final Result from Last 3 Months or Most Recently Relevant to Health Maintenance Insurance MEDICARE [facility] Care Teams Voice Pathologist Relationship Specialty Start Date End Date Marvel Dia MD [address] [place] [phone] PCP - General Internal Medicine 09/30/24
--- OUTSIDE RECORDS SUMMARY | 2025-02-15 12:17 | XMS_ITS | Clinical Summary ---
Author Organization [facility] Address [address] [place] [address] Care Team Providers Care Anode Crew Supervisor Name Role Phone Marvel Dia MD Primary Care Provider [phone] Medications No known medications Active Problems No [...] age to complete this topic Care Teams Anode Crew Supervisor Relationship Specialty Start Date End Date Marvel Dia MD PCP - General Internal Medicine 07/21/24
== END 2025-02-15 11:58 | disposition home or self-care (01) ==
LOC: HO.RHES 10:47
PROVIDERS: PCP Internal Medicine; Visit Provider Internal Medicine Rheumatology
DX: M34.1 CR(E)ST syndrome (principal); Z79.52 Long term (current) use of systemic steroids; N18.9 Chronic kidney disease, unspecified
CPT/HCPCS: 99204

== ENCOUNTER → 2025-02-15 10:46 | Outpatient (BNVA) | payer MEDICARE, OTHER, SELFPAY | PROVIDERS: PCP Internal Medicine; Visit Provider Internal Medicine Rheumatology ==

== ENCOUNTER 2025-03-01 14:56 | Outpatient (REF) | payer MEDICARE, OTHER, SELFPAY ==
[2025-03-01 18:21] LABS: Alanine Aminotransferase 21 U/L (0-31); Aspartate Amino Transferase 31 U/L (5-31)
[2025-03-02 20:43] LABS: Anti-Centromere B Antibodies <1.0 NEG AI (<1.0 NEG); Antibody to SS-A Antigen <1.0 NEG AI (<1.0 NEG); Antibody to SS-B Antigen <1.0 NEG AI (<1.0 NEG); Scleroderma 70 Antibody <1.0 NEG AI (<1.0 NEG)
== END 2025-03-01 14:57 | disposition home or self-care (01) ==
LOC: HO.HKASLDS 14:56
PROVIDERS: Visit Provider Internal Medicine Rheumatology
DX: M34.1 CR(E)ST syndrome (principal); N18.9 Chronic kidney disease, unspecified; Z79.52 Long term (current) use of systemic steroids; Z79.60 Long term (current) use of unspecified immunomodulators and immunosuppressants
CPT/HCPCS: 36415; 84450; 84460; 86235

== ENCOUNTER 2025-05-11 12:49 | Outpatient (REF) | payer MEDICARE, OTHER, SELFPAY ==
--- NOTE | ~2025-05-11 | MM_ITS ---
EXAMINATION: DXA BONE DENSITY EXTREMITY HISTORY: Z79.52 - care home (current) use of systemic steroids TECHNIQUE: [employer] Dual energy absorptiometry (DEXA) of the lumbar spine, total left hip, femoral neck, and distal radius was performed. COMPARISON: There are no prior studies for comparison. FINDINGS: The bone mineral density of the lumbar spine is 0.999 g/cm2, corresponding to a T-score of -1.5, and a Z-score of 0.7. This is indicative of osteopenia. The bone mineral density of the left total hip is 0.766 g/cm2, corresponding to a T-score of -1.9, and a Z-score of 0.5. This is indicative of osteopenia. The bone mineral density of the left femoral neck is 0.658 g/cm2, corresponding to a T-score of -2.7, and a Z-score of -0.2. This is indicative of osteoporosis. The bone mineral density of the distal radius is 0.700 g/cm2, corresponding to a T-score of -2.1, and a Z-score of 1.0. This is indicative of osteopenia. FRACTURE RISK: The FRAX index suggests a risk of major osteoporotic fracture of 28.1%, and of hip fracture 12.7%. MM/XR DEXA appendicular skeleton IMPRESSION: Based on bone mineral density, and according to World Health Organization (WHO) criteria, the diagnosis is consistent with osteoporosis. Statistically, 68% of repeat scans fall within 1 SD (+/- 0.010 g/cm2 for AP spine L1-L4) and 1 SD (+/- 0.012 g/cm2 for femur total) FRAX is a trademark of the [employer]'s [place] for Metabolic Bone Disease, a World Health Organization (WHO) Collaborating Center. Electronically signed by: Donnell Lieberman MD 05/12/2025 02:26 PM EDT
--- OUTSIDE RECORDS SUMMARY | 2025-05-11 13:34 | XMS_ITS ---
[facility] Name [facility] Organization Unknown Results Test Name/Text Value Interpretation Date Range Source Troponin I SerPl HS-mCnc 29.0 ng/L Above high normal 07/22/2024 0 - 14 [facility] Troponin I SerPl HS-mCnc 27.0 ng/L Above high normal 07/22/2024 0 - 14 [facility] HGB BLD MCNC 13.8 g/dL Normal 07/21/2024 12.5 - 16 [facility] H WBC NO. BLD AUTO 6.2 K/uL Normal 07/21/2024 4 - 10.5 CT [facility] NUCLEATED RBC 0.0 % Normal 07/21/2024 0 - [facility] RBC QN AUTO 32.2 pg Normal 07/21/2024 25 - 33 [facility] EOSINOPHIL NO. BLD AUTO 0.1 K/uL Normal 07/21/2024 0 - 0 .5 [facility] NEUTROPHILS NFR BLD AUTO 58.8 % Normal 07/21/2024 44 - 74 [facility] PLATELET NO. BLD AUTO 234.0 K/uL Normal 07/21/2024 150 - 450 [facility] IMMATURE GRANULOCYTE, PERCENT 0.2 % Normal 07/21/2024 0 - 1 [facility] BASOPHILS IN BLOOD BY AUTOMATED COUNT 0.1 K/uL Normal 07/21/2024 0 - 0.2 [facility] EOSINOPHIL NFR BLD AUTO 1.1 % Normal 07/21/2024 0 - 6 [facility] PMV BLD AUTO 10.0 fL Normal 07/21/2024 7.4 - 11.4 [facility] LYMPHOCYTES NFR BLD AUTO 28.0 % Normal 07/21/2024 20 - 48 [facility] BASOPHILS NFR BLD AUTO 1.5 % Normal 07/21/2024 0 - 2 [facility] HCT VFR BLD AUTO 41.2 % Normal 07/21/2024 37 - 47 [facility] MCV RBC AUTO 96.3 fL Normal 07/21/2024 78 - 100 [facility] H LYMPHOCYTES NO. BLD AUTO 1.7 K/uL Normal 07/21/2024 1 - 3.2 [facility] RBC NO. BLD AUTO 4.28 M/uL Normal 07/21/2024 4.2 - 5.4 CT [facility] MONOCYTES NFR BLD AUTO 10.4 % Normal 07/21/2024 2 - 12 [facility] MONOCYTES NO. BLD AUTO 0.6 K/uL Normal 07/21/2024 0 - 0. 8 [facility] IMMATURE GRANULOCYTE, ABSOLUTE 0.01 k/uL Normal 07/21/2024 - 0.1 [facility] RDW RBC AUTO RTO 13.2 % Normal 07/21/2024 12.1 - 16.2 [facility] NEUTROPHILS NO. BLD AUTO 3.6 K/uL Normal 07/21/2024 1.8 - 7.8 [facility] MCHC RBC AUTO MCNC 33.5 g/dL Normal 07/21/2024 32 - 36 [facility] BNP BLD MCNC 380.0 pg/mL Above high normal 07/22/2024 0 - 10 0 [facility] MAGNESIUM SERPL MCNC 2.1 mg/dL Normal 07/21/2024 1.7 - 2. 8 [facility] ANION GAP SERPL SCNC 11.0 mmol/L Normal 07/21/2024 5 - 14 [facility] BUN SERPL MCNC 33.0 mg/dL Above high normal 07/21/2024 7 - 1 7 [facility] SODIUM SERPL SCNC 137.0 mmol/L Normal 07/21/2024 135 - 14 5 [facility] POTASSIUM SERPL SCNC 4.5 mmol/L Normal 07/21/2024 3.5 - 5 .1 [facility] GLUCOSE SERPL MCNC 96.0 mg/dL Normal 07/21/2024 70 - 199 [facility] CALCIUM SERPL MCNC 9.1 mg/dL Normal 07/21/2024 8.4 - 10.2 [facility] Glomerular filtration rate/1.73 sq M. predicted 45.0 Below low normal 07/21/2024 60 - [facility] CHLORIDE SERPL SCNC 104.0 mmol/L Normal 07/21/2024 98 - 1 07 [facility] HCO3 SER SCNC 22.0 mmol/L Below low normal 07/21/2024 24 - 3 2 [facility] CREAT SERPL MCNC 1.2 mg/dL Above high normal 07/21/2024 0.5 - 1 [facility] History of Medication Use Medication Directions Dispensed Refills Start Date End Date Stat us lidocaine (PF) 100 mg/5 mL (2 %) injection syringe Take 3 mL by injection route. 03/30/2025 active triamcinolone acetonide 40 mg/mL suspension for injection Take 60 mg by injection route. 03/30/2025 active lidocaine (PF) 100 mg/5 mL (2 %) injection syringe active triamcinolone acetonide 40 mg/mL suspension for injection active Problems Problem Status Onset Date Problem Type Date of Resoluti on Source Elevated creatine kinase level active EncounterDiagnosisAct [facility] H Bradycardia active EncounterDiagnosisAct [facility] Encounters Encounter Type Encounter Reason Primary Diagnosis Location Date Ambulatory [facility] [place] 04/27/2025 Ambulatory [facility] [place] 04/04/2025 Ambulatory [facility] [place] 03/30/2025 Ambulatory [facility] [place] 03/30/2025 Ambulatory [facility] [place] 03/30/2025 Ambulatory [facility] [place] 03/30/2025 Ambulatory [facility] [place] 03/30/2025 Emergency Bradycardia, unspecified Bradycardia, unspecified [facility] 07/21/2024 Care Team Organization Name Specialty Phone Email Start Date End [facility] te [facility] 07/24/2024 04/11/2025 [facility] 07/22 [facility] 07/22/2024 [facility] Rakel Madison APRN Primary Care 12/30/2022 05/16/2024 [facility] Marvel Dia Primary Care 08/05/2022 05/16/20
--- OUTSIDE RECORDS SUMMARY | 2025-05-11 13:34 | XMS_ITS | Clinical Summary ---
Author Organization [facility] Address [address] [place] [address] Care Team Providers Care Supervisor Asbestos Removal Name Role Phone Marvel Dia MD Primary Care Provider [phone] Medications No known medications Active Problems No [...] 54 07/22/2024 9:01 PM EDT Temperature 36.1 C (97 F) 07/22/2024 9:01 PM EDT Respiratory Rate 28 [...] season) 2024 12/04/2020, 11/12/2020 Influenza Vaccine (#1) 2025 DTap / Tdap / Td (2 - Td or Tdap) 03/14/2034 03/14/2024 Hepatitis B Vaccines Aged Out No long er eligible based on patient's age to complete this topic RSV Ped < 20 months Aged Out No longe r eligible based on patient's age to complete this topic Care Teams Supervisor Asbestos Removal Relationship Specialty Start Date End Date Marvel Dia MD PCP - General Internal Medicine 07/21/24
--- OUTSIDE RECORDS SUMMARY | 2025-05-11 13:34 | XMS_ITS | Clinical Summary ---
Author Organization [address] [facility] Address [address] [place] [phone] Phone Care Team Providers Care Advertising Designer Name Role Phone Marvel Dia MD Primary Care Provider [phone] Allergies Active Allergy Reactions Criticality Noted Date Comments Rpitesh Inhibitors 08/21/2015 Amoxicillin Itching 07/07/2023 Arb-Angiotensin Receptor Antagonist 08/21/2015 Escitalopram Oxalate 06/10/2022 Heart palpation , insomnia , sweats and anxiety Lisinopril 01/15/2022 Metronidazole Medium 12/08/2016 Other Reaction(s): Hives/Urticaria Moxifloxacin 09/02/2007 Other Reaction(s): Hives/Urticaria Sertraline 04/23/2009 Sulfa (Sulfonamide Antibiotics) Itching 08/14/2006 Other Reaction(s): Numbness, tingling or swelling of the lips, tongue or mouth Medications hydroCHLOROthi azide 12.5 mg tablet Take 1 tablet (12.5 mg total) by mouth every other day. 3 Active predniSONE (DELTASONE) 2.5 mg tablet Take 2.5 mg by mouth as needed. Per poker manager Active famotidine (PEPCID) 40 mg tablet Take 1 tablet (40 mg total) by mouth 2 (two) times a day. 180 each 3 5 026 Active LORazepam (ATIVAN) 0.5 mg tablet Take 1 tablet (0.5 mg total) by mouth 1 (one) time each day if needed for anxiety for up to 21 days. Max Daily Amount: 0.5 mg 21 tablet 5 Active triamcinolone (KENALOG) 0.1 % cream Apply to affected area 1-2 times daily as needed. Avoid face and groin. 80 g 5 026 Active Active Problems Problem Noted Date Diagnosed Date Anxiety 04/04/2025 Pacemaker 08/10/2024 ECG abnormal 11/26/2022 Overview (07/28/2024): Last Assessment & Plan: Her EKG has been stable. She does have anterolateral T wave inversions. 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 This has been unchanged and we will continue to monitor Hypertrophic cardiomyopathy (CMS/HCC V24, CMS/ C V28) 11/26/2022 Overview (07/28/2024): Last Assessment [...] Encounters Date Type Department Care Team Description 04/04/2025 2:30 PM EDT Office Visit Internal Medicine - [facility] [address] [place] [address] Marvel Dia MD Anxiety (Primary Dx); External hemorrhoids; Primary hypertension; Rash from Last 3 Months Immunizations Name Administration [...] disea se) stage 3, GFR 30-59 ml/min ([facility]) CREST syndrome (CMS/HCC V24, CMS/HCC V28) DX:CREST [...] Sign Reading Time Taken Comments Blood Pressure 138/74 04/04/2025 2:21 PM EDT Pulse 72 04/04/2025 2:21 PM EDT Temperature 36.7 C (98 F) 08/10/2024 1:32 PM EST Respiratory Rate - - Oxygen Saturation 98% 08/07/2024 2:18 PM EST Inhaled Oxygen Concentration - - Weight 56.4 kg (124 lb 6.4 oz) 04/04/2025 2:21 P M EDT Height 157.5 cm (5' 2 ) 04/04/2025 2:21 PM EDT Body Mass Index 22.75 04/04/2025 2:21 PM EDT Plan of Treatment Upcoming Encounters Date Type Department Care Team (Late st Contact Info) Description 10/10/2025 3:30 PM EST Office Visit Internal Medicine - [address] [phone] Marvel Dia MD [address] [place] [phone] Health Maintenance Due Date Last Done Comments Pneumococcal Vaccine: 50+ Years (1 of 1 - PCV) 1991 RSV Immunization Adult Patients (1 - 1-dose 75+ series) 2016 COVID-19 Vaccine (3 - Pfizer risk series) 01/01/2021 12/04/2020, 11/12/2020 Medicare Annual Wellness Visit 09/06/2022 Osteoporosis Screening (Bone Density Screening) 09/06/2022 Social Influencers of Health Screening 09/06/2022 Falls Risk Assessment 05/05/2024 05/05/2023 Depression Screening 09/28/2024 03/14/2024 Influenza Vaccine (#1) 2025 Hypertension/CHF/CAD Annual BMP Blood Test 08/07/2025 [...] 08/07/2024 2:39 PM EST Unspecified kidney failure HM DEPRESSION SCREENING Routine 03/14/2024 FALLS RISK ASSESSMENT Routine 05/05/2023 from Last 3 Months or Most Recently Relevant to Health Maintenance Results * (ABNORMAL) Lipid panel with reflex to direct LDL (11/29/2024 8:38 AM EST) Cholesterol 244(H) 0 - 200 mg/dL LAB CHEMISTRY METHOD 11/29/2024 1:30 PM EST [facility] Triglycerides 112 0 - 150 mg/dL LAB CHEMISTRY METHOD 11/29/2024 1:30 PM EST [facility] HDL 80 >=40 mg/dL LAB CHEMISTRY METHOD 11/29/2024 1:30 PM EST [facility] LDL Calculated 142(H) 0 - 100 mg/dL LAB CHEMISTRY METHOD 11/29/2024 1:30 PM EST [facility] VLDL Cholesterol Abelardo 22.4 mg/dL LAB CHEMISTRY METHOD 11/29/2024 1:30 PM EST [facility] Non HDL Chol. (LDL+VLDL) 164(H) <145 mg/dL LAB CHEMISTRY METHOD 11/29/2024 1:30 PM EST [facility] Chol/HDL Ratio 3.1 0.0 - 4.4 LAB CHEMISTRY METHOD 11/29/2024 1:30 PM EST [facility] Blood Venous blood specimen / Unknown Venipuncture / Unknown 11/29/2024 8:38 AM EST 11/29/2024 8:39 AM EST us Marvel Dia MD LAB BLOOD ORDERABLES Final Res ult [facility] [address] [place] [address], * (ABNORMAL) Comprehensive metabolic panel (08/07/2024 2:39 PM EST) Sodium 139 133 - 145 mmol/L LAB CHEMISTRY METHOD 08/07/2024 8:30 PM [facility] Potassium 4.2 3.5 - 5.5 mmol/L LAB CHEMISTRY METHOD 08/07/2024 8:30 PM [facility] Chloride 105 96 - 110 mmol/L LAB CHEMISTRY METHOD 08/07/2024 8:30 PM [facility] CO2 25 21 - 32 mmol/L LAB CHEMISTRY METHOD 08/07/2024 8:30 PM [facility] Anion Gap 9 3 - 11 LAB CHEMISTRY METHOD 08/07/2024 8:30 PM [facility] Glucose 128(H) 70 - 100 mg/dL LAB CHEMISTRY METHOD 08/07/2024 8:30 PM [facility] BUN 27(H) 5 - 25 mg/dL LAB CHEMISTRY METHOD 08/07/2024 8:30 PM [facility] Creatinine 1.43(H) 0.50 - 1.10 mg/dL LAB CHEMISTRY METHOD 08/07/2024 8:30 PM [facility] eGFR 36(L) >=60 mL/min/1. 73m2 LAB CHEMISTRY METHOD 08/07/2024 8:30 PM [facility] Comment:Calculation based on the Chronic Kidney Disease Epidemiology Collaboration (CKD-EPI) equation refit without adjustment for race. BUN/Creatinine Ratio 18.9 LAB CHEMISTRY METHOD 08/07/2024 8:30 PM [facility] Calcium 9.8 8.5 - 10.5 mg/dL LAB CHEMISTRY METHOD 08/07/2024 8:30 PM [facility] AST (SGOT) 26 10 - 42 unit/L LAB CHEMISTRY METHOD 08/07/2024 8:30 PM [facility] ALT (SGPT) 26 10 - 60 unit/L LAB CHEMISTRY METHOD 08/07/2024 8:30 PM [facility] Alkaline Phosphatase 65 42 - 121 unit/L LAB CHEMISTRY METHOD 08/07/2024 8:30 PM EST [facility] Total Protein 7.0 6.0 - 8.0 g/dL LAB CHEMISTRY METHOD 08/07/2024 8:30 PM EST [facility] Albumin 4.0 3.2 - 5.0 g/dL LAB CHEMISTRY METHOD 08/07/2024 8:30 PM EST [facility] Total Bilirubin 0.4 0.0 - 1.4 mg/dL LAB CHEMISTRY METHOD 08/07/2024 8:30 PM EST [facility] Blood Venous blood specimen / Unknown Venipuncture / Unknown 08/07/2024 2:39 PM EST 08/07/2024 2:40 PM EST Marvel Dia MD LAB BLOOD ORDERABLES Final Res ult [facility] [address] [place] [address], * Depression Screening (03/14/2024) Depression Screening abstracted Historical Provider HEALTH MAINTENANCE Final Result * Falls Risk Assessment (05/05/2023) Falls Risk Assessment abstracted Historical Provider HEALTH MAINTENANCE Final Result from Last 3 Months or Most Recently Relevant to Health Maintenance Insurance MEDICARE [facility] Care Teams Advertising Designer Relationship Specialty Start Date End Date Marvel Dia MD [address] [place] [id number] PCP - General Internal Medicine 09/30/24
--- OUTSIDE RECORDS SUMMARY | 2025-05-11 13:34 | XMS_ITS | Clinical Summary ---
Author Organization [facility] Address [address] [address] Phone Care Team Providers Care Weather Reporter Name Role Phone Marvel Dia MD Primary Care Provider + Allergies Active Allergy Reactions Criticality Noted Date Comments Amlodipine 07/17/2023 Amoxicillin-Pot Clavulanate 07/17/20 Moxifloxacin 07/17/2023 Valsartan 07/17/2023 Metronidazole 07/17/2023 Cephalexin 07/17/2023 Nitrofurantoin Monohyd/M-Cryst 07/17 Sulfa (Sulfonamide Antibiotics) 06/29 Sertraline 07/17/2023 Medications hydroCHLOROthiazide (HYDRODIURIL) 12.5 MG tablet Take 12.5 mg by mouth every other day. 3 Active LORazepam (ATIVAN) 0.5 MG tablet Take 1 tablet by mouth daily as needed. 3 Active famotidine (PEPCID) 20 MG tablet 20 mg in am, 40 mg in pm Active predniSONE (DELTASONE) 5 MG tabletIndications:C REST syndrome,Primary osteoarthritis involving multiple joints Take 1 tablet (5 mg total) by mouth daily with breakfast. 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 She has no active symptoms. She takes omeprazole for her acid reflux. No need for labs today. 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 She recently developed worsening acid reflux nausea and abdominal pains. She has a history of gastric ulcers in the past. She will be seeing GI hopefully soon. I suggested she take about 2 weeks of Pepcid 20 mg to see if she can control the acid reflux. She also takes prednisone 5 mg a few times a week which controls her symptoms very well. Primary osteoarthritis involving multiple joints 07/23/2023 Assessment & Plan (02/14/2024 8:48 PM EDT): Osteoarthritis in multiple joints with no current swelling. She can safely take Tylenol 650 mg as needed. Assessment & Plan (07/23/2023 4:12 PM EDT): Degenerative osteoarthritis in multiple areas, most symptomatic in the cervical spine shoulders and lower back. She has joint pain when she is active and is doing a lot of housecleaning. Suggested she try Tylenol 650 and/or prednisone as needed. Social History Tobacco Use Types Packs/Day Years Used Date Smoking Tobacco: Former Cigarettes Smokeless Tobacco: Never Alcohol Use Standard Drinks/Week Comments Never 0 (1 standard drink = 0.6 oz pur e alcohol) Education Answer Date Recorded Are you interested in more education? Not on dunia e 04/20/2023 Are you concerned about learning? Not on file 04/20/2023 No 04/20/2023 No 04/20/2023 Digital Access Answer Date Recorded No 04/20/2023 No 04/20/2023 Reliable internet access at home? Not on file 04/20/2023 Device with a working camera? Not on file Comments Unknown Sex and Gender Information Value Date Recorded Sex Assigned at Not on file Legal Sex Female 10:58 AM EDT Gender Identity Not on file Sexual Orientation Not on file Last Filed Vital Signs Vital Sign Reading Time Taken Comments Blood Pressure 140/72 01/26/2024 11:46 AM EDT Pulse 91 01/26/2024 11:46 AM EDT Temperature - - Respiratory Rate - - Oxygen Saturation 65% 01/26/2024 11:46 AM EDT Inhaled Oxygen Concentration - - Weight 56.2 kg (124 lb) 01/26/2024 11:46 AM EDT Height 160 cm (5' 3 ) 01/26/2024 11:46 AM EDT Body Mass Index 21.97 01/26/2024 11:46 AM EDT Plan of Treatment Health Maintenance Due Date Last Done Comments Adult Td,Tdap Booster 1940 POTASSIUM LEVEL 1941 DEPRESSION SCREENING 1953 PNEUMOCOCCAL VACCINES (50+ years) (1 of 1 - PCV) 1991 ZOSTER VACCINES (1 of 2) 1991 OSTEOPOROSIS SCREENING INITI AL (ONE-TIME) 2006 RSV VACCINE (1 - 1-dose 75+ series) 2016 COVID-19 VACCINE (3 - 2023-2 5 season) 2024 12/04/2020, 11/12/2020 HEPATITIS A VACCINES Aged Out No long er eligible based on patient's age to complete this topic HIB VACCINES Aged Out No longer eligi ble based on patient's age to complete this topic MENINGOCOCCAL VACCINES (ACWY) Aged Out No longer eligible based on patient's age to complete this topic MENINGOCOCCAL VACCINES (B) Aged Out N o longer eligible based on patient's age to complete this topic Medical Devices Not on file Insurance MEDICARE PART A & [facility] SUPPLEMENT MEDICARE PART A & B [facility] MEDICARE SUPPLEMENT MEDICARE PART A & [facility] SUPPLE[facility] MEDIC[facility] PART A & B [facility] EXTENSION MEDICARE SUPPLEMENT MEDICARE PART A & B [facility] EXTENSION MEDICARE SUPPLEMENT MEDICARE PART A & B [facility] EXTENSION MEDICARE SUPPLEMENT [facility] Care Teams Weather Reporter Relationship Specialty Start Date End Date Marvel Dia MD [address] [place] [phone] PCP - General Internal Medicine 04/20/23 Additional Source Comments The information contained in this document represents components of the legal health record. It is not the complete legal health record.[facility]
== END 2025-05-11 12:50 | disposition home or self-care (01) ==
LOC: HO.MAMMO 12:49
PROVIDERS: PCP Internal Medicine; Visit Provider Internal Medicine Rheumatology
DX: M34.1 CR(E)ST syndrome (principal); Z79.52 Long term (current) use of systemic steroids
CPT/HCPCS: 77081

== ENCOUNTER → 2025-05-11 13:00 | Outpatient (BNV) | payer MEDICARE, OTHER, SELFPAY | PROVIDERS: PCP Internal Medicine; Visit Provider Radiology Diagnostic Radiology | DX: E28.39 Other primary ovarian failure (principal) | CPT/HCPCS: 77081 ==

== ENCOUNTER 2025-05-15 11:12 | Outpatient (REF) | payer MEDICARE, OTHER, SELFPAY ==
--- OUTSIDE RECORDS SUMMARY | 2025-05-15 12:30 | XMS_ITS | Clinical Summary ---
Author Organization [facility] Address [address] [address] Phone Care Team Providers Care Information Systems Consultant Name Role Phone Marvel Dia MD Primary [...] file Insurance MEDICARE PART A & B [facility] MEDICARE SUPPLEMENT MEDICARE PART A & B [facility] MEDICARE SUPPLEMENT MEDICARE PART A & B [facility] MEDICARE SUPPLEMENT MEDICARE PART A & B [facility] EXTENSION MEDICARE SUPPLEMENT MEDICARE PART A & B [facility] EXTENSION MEDICARE SUPPLEMENT MEDICARE PART A & B [facility] EXTENSION MEDICARE SUPPLEMENT [facility] Care Teams Information Systems Consultant Relationship Specialty Start Date End Date Marvel Dia MD [address] [place] [phone] PCP - General Internal Medicine 04/20/23 Additional Source Comments The information contained in this document represents components of the legal health record. It is not the complete legal health record.[facility]
--- OUTSIDE RECORDS SUMMARY | 2025-05-15 12:30 | XMS_ITS | Clinical Summary ---
Author Organization [facility] Address [address] [place] [address] Care Team Providers Care Pressure Controller Name Role Phone Marvel Dia MD Primary Care Provider [phone] Medications No known medications Active Problems No [...] age to complete this topic Care Teams Pressure Controller Relationship Specialty Start Date End Date Marvel Dia MD PCP - General Internal Medicine 07/21/24
[2025-05-15 18:32] LABS: Anion Gap 12 (12-20); Blood Urea Nitrogen 23 mg/dL (9-16); Calcium 9.3 mg/dL (8.4-10.2); Carbon Dioxide 25 mmol/L (22-29); Chloride 107 mmol/L (96-108); Estimated Glomerular Filt Rate 51; Potassium 4.2 mmol/L (3.3-5.1); Sodium 140 mmol/L (135-145)
== END 2025-05-15 11:13 | disposition home or self-care (01) ==
LOC: HO.HKASLDS 11:12
PROVIDERS: Visit Provider Internal Medicine Hypertension Specialist
DX: I12.9 Hypertensive chronic kidney disease with stage 1 through stage 4 chronic kidney disease, or unspecified chronic kidney disease (principal); N18.9 Chronic kidney disease, unspecified
CPT/HCPCS: 36415; 80048

== ENCOUNTER 2025-05-17 10:43 | Outpatient (AMB) | payer MEDICARE, OTHER, SELFPAY ==
[2025-05-17 10:52] VITALS: BP 146/84; PULSE 76; O2SAT 95; BMI 22.7
--- NOTE | 2025-05-17 10:52 | HO.NEPHOV_ITS ---
Vital Signs 05/17/25 10:52 05/17/25 11:03 Height 5 ft 2 in Weight 124 lb BMI 22.7 BP 146/84 H 140/80 H Blood Pressure Location Lt brachial Lt brachial Position Sitting Sitting Pulse 76 Pulse Source Pulse Oximeter Pulse Oximetry (%) 95 Oxygen Delivery Method Room Air Intake Visit Reasons: 6m follow up Order Dispatcher Chief Required: No Accompanied by: Self / Same As Patient Allergies ANGIE Inhibitors Allergy (Unknown, Verified 05/17/25 10:54) Unknown amoxicillin Allergy (Unknown, Verified 05/17/25 10:54) Itching escitalopram Allergy (Unknown, Verified 05/17/25 10:54) Unknown lisinopril Allergy (Unknown, Verified 05/17/25 10:54) Unknown metronidazole Allergy (Unknown, Verified 05/17/25 10:54) Hives moxifloxacin Allergy (Unknown, Verified 05/17/25 10:54) Hives sertraline Allergy (Unknown, Verified 05/17/25 10:54) Unknown Sulfa (Sulfonamide Antibiotics) Allergy (Unknown, Verified 05/17/25 10:54) Unknown Medication List - Last Reconciled 05/17/25 by Gurdeep Campbell MD famotidine 40 mg PO BEDTIME famotidine 20 mg PO DAILY hydrochlorothiazide 6.25 mg (1/2 x 12.5 mg) PO DAILY prednisone 2.5 mg PO DAILY HPI Comments Details: Pleasant 84 yr old woman referred for CKD She had a syncopal episode in Jun 2024 and 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 Lowest was 98/54 mmHG h/o CREST Was being followed by for a long time and currently has no [facility] follow up 11/23/2024. Home blood pressure readings are excellent in fact some readings were low. When she stops hydrochlorothiazide she develops leg edema therefore she is on a low dose. 05/17/25 Seen by [facility] Doing well No new issues [facility] Medical History (Updated 02/15/25 @ 12:29 by Hector Escalante MD) Anxiety Pacemaker (~06/2024) Surgical History Hx of cholecystectomy History of cataract extraction Family History Sister Arthritis Alzheimer disease Mother Cancer of uterus Father Cerebral aneurysm Daughter Stroke Social History Patient Tobacco Use Status: Former Tobacco user Years Smoked: Quit 25 years ago. Physical Exam Vital Signs: Last Vital Signs Pulse 76 05/17/25 10:52 BP 140/80 H 05/17/25 11:03 Pulse Ox 95 05/17/25 10:52 Oxygen Delivery Method Room Air 05/17/25 10:52 BMI result Body Mass Index 22.7 Comfortable Neck supple no JVD. Lungs entry equal no rales. Heart S1-S2 heard no gallop or rub. Abdomen soft nontender. Neuro alert awake oriented. No asterixis. Extremities no edema. Results Reviewed Nephrology Results: Hgb, (12.0-16.0) 14.1 g/dl 10/26/24 WBC, (4.8-10.8) 8.2 X10*3/uL 10/26/24 Plt Count, (160-400) 338 X10*3/uL 10/26/24 Sodium, (135-145) 140 mmol/L 05/15/25 Potassium, (3.3-5.1) 4.2 mmol/L 05/15/25 Chloride, (96-108) 107 mmol/L 05/15/25 Carbon Dioxide, (22-29) 25 mmol/L 05/15/25 BUN, (9-16) 23 mg/dL H 05/15/25 Creatinine, (0.5-1.4) 1.03 mg/dL 05/15/25 Calcium, (8.4-10.2) 9.3 mg/dL 05/15/25 PTH Intact, (8.7-77.1) 96.5 pg/mL H 10/26/24 Urine Protein, (Neg-Trace) Negative mg/dL 10/26/24 Urine Creatinine 56.52 mg/dL 10/26/24 Assessment & Plan Assessment & Plan (1) CKD (chronic kidney disease): Code(s): N18.9 - Chronic kidney disease, unspecified Category: Medical (2) CREST (calcinosis, Raynaud's phenomenon, esophageal dysfunction, sclerodactyly, telangiectasia): Comment: Presenting with telangiectasia, Raynaud's phenomenon and GERD diagnosed 10 years ago. She continues to have telangiectasia with tolerable Raynaud's phenomenon. She has been on long-term low-dose prednisone for joint pain. At this time she does not have evidence of inflammatory arthritis. We will start tapering prednisone slowly we discussed the risks and benefits of prednisone. She has sicca symptoms. I will workup with labs for secondary Sjogren syndrome. Code(s): M34.1 - CR(E)ST syndrome Category: Medical (3) HTN (hypertension): Code(s): I10 - Essential (primary) hypertension Category: Medical Plan 85 yr old woman with CKD 3 in a setting of longstanding HTN and superimposed White coat effect agaisnt a back drop of AV block and s/p PM placement and CREST Probably has HTN -nephrosclerosis No evidence of glomerular nephritis. Urine sediments bland. She had a component of acute kidney injury. MAGUI has resolved. Creatinine is back to 0.85. Monitor BP at home Keep hydrochlorothiazide to 6.25 mg daily ( has a eRX for 12.5 mg daily- but she will break it and take half) Keep I >O Continue to avoid nehhrotoxins including NSAIDs Follow up with [facility]/ for CREST Orders: Orders Basic Metabolic Panel 1 Year I10 - Essential (primary) hypertension Medications: Changed From hydrochlorothiazide 6.25 mg (1/2 x 12.5 mg) PO DAILY 60 tabs 1RF To hydrochlorothiazide 12.5 mg PO DAILY 90 tabs 1RF Coding Level of Care Code Est Pt Level 4 (90786) Diagnoses CKD (chronic kidney disease) N18.9 CREST (calcinosis, Raynaud's phenomenon, esophageal dysfunction, sclerodactyly, telangiectasia) M34.1 HTN (hypertension) I10
[2025-05-17 11:03] VITALS: BP 140/80
--- OUTSIDE RECORDS SUMMARY | 2025-05-17 12:02 | XMS_ITS | Clinical Summary ---
Author Organization [facility] Address [address] [address] Phone Care Team Providers Care Liquid Natural Gas Plant Operator Name Role Phone Marvel Dia MD Primary [...] file Insurance MEDICARE PART A & B [facility] SUPPLEMENT MEDICARE PART A & B [facility] MEDICARE SUPPLEMENT MEDICARE PART A & [facility] MEDICARE SUPPLEMENT MEDICARE PART A & B [facility] EXTENSION MEDICARE SUPPLEMENT MEDICARE PART A & B [facility] EX[facility] MEDICARE SUPPLEMENT MEDICARE PART A & B [facility] MEDICARE SUPPLEMENT [facility] Care Teams Liquid Natural Gas Plant Operator Relationship Specialty Start Date End Date Marvel Dia MD [address] [place] [id number] PCP - General Internal Medicine 04/20/23 Additional Source Comments The information contained in this document represents components of the legal health record. It is not the complete legal health record.[facility]
--- OUTSIDE RECORDS SUMMARY | 2025-05-17 12:02 | XMS_ITS | Clinical Summary ---
Author Organization [facility] Address [address] [place] [address] Care Team Providers Care Railroad Carman Name Role Phone Marvel Dia MD Primary Care Provider [phone] Medications No known medications Active Problems No [...] age to complete this topic Care Teams Railroad Carman Relationship Specialty Start Date End Date Marvel Dia MD PCP - General Internal Medicine 07/21/24
== END 2025-05-17 11:09 | disposition home or self-care (01) ==
LOC: HO.HKAS 10:44
PROVIDERS: PCP Internal Medicine; Visit Provider Internal Medicine Hypertension Specialist
DX: I12.9 Hypertensive chronic kidney disease with stage 1 through stage 4 chronic kidney disease, or unspecified chronic kidney disease (principal); N18.9 Chronic kidney disease, unspecified; M34.1 CR(E)ST syndrome
CPT/HCPCS: 99214

== ENCOUNTER → 2025-05-17 10:43 | Outpatient (BNVA) | payer MEDICARE, OTHER, SELFPAY | PROVIDERS: PCP Internal Medicine; Visit Provider Internal Medicine Hypertension Specialist | DX: I12.9 Hypertensive chronic kidney disease with stage 1 through stage 4 chronic kidney disease, or unspecified chronic kidney disease (principal); N18.9 Chronic kidney disease, unspecified; M34.1 CR(E)ST syndrome | CPT/HCPCS: 99212 ==

== ENCOUNTER 2025-05-18 12:24 | Outpatient (AMB) | payer MEDICARE, OTHER, SELFPAY ==
--- NOTE | 2025-05-18 12:26 | A.OFFVIS_ITS ---
Vital Signs 05/18/25 12:27 Height 5 ft 2 in Weight 124 lb 8.979 oz BMI 22.8 BP 130/80 Blood Pressure Location Lt brachial Position Sitting Pulse 71 Pulse Source Pulse Oximeter Pulse Oximetry (%) 95 Oxygen Delivery Method Room Air Intake Visit Reasons: 2 months Intake Note: Patient presents for cr(e)st syndrome. Accompanied by: Self / Same As Patient Allergies ANGIE Inhibitors Allergy (Unknown, Verified 05/18/25 12:30) Unknown amoxicillin Allergy (Unknown, Verified 05/18/25 12:30) Itching escitalopram Allergy (Unknown, Verified 05/18/25 12:30) Unknown lisinopril Allergy (Unknown, Verified 05/18/25 12:30) Unknown metronidazole Allergy (Unknown, Verified 05/18/25 12:30) Hives moxifloxacin Allergy (Unknown, Verified 05/18/25 12:30) Hives sertraline Allergy (Unknown, Verified 05/18/25 12:30) Unknown Sulfa (Sulfonamide Antibiotics) Allergy (Unknown, Verified 05/18/25 12:30) Unknown HPI HPI 2 months: Details: SHe has been taking prednisone 2.5mg daily. She has bilateral shoulder pain and upper back pain, which spreads to the arm are since not taking additional 5 mg tablets when pain is worse. Tylenol 1300 mg b.i.d. was ineffective. She is tensing up her shoulders due to uncontrolled pain. She recently had an x-ray of her right shoulder and left elbow from urgent care. Patient reports she has arthritis in her right shoulder. [facility] Medical History Anxiety Pacemaker (~06/2024) Surgical History Hx of cholecystectomy History of cataract extraction Family History Sister Arthritis Alzheimer disease Mother Cancer of uterus Father Cerebral aneurysm Daughter Stroke Social History Patient Tobacco Use Status: Former Tobacco user Years Smoked: Quit 25 years ago. Physical Exam Vital Signs: Last Vital Signs Pulse 71 05/18/25 12:27 BP 130/80 05/18/25 12:27 Pulse Ox 95 05/18/25 12:27 Oxygen Delivery Method Room Air 05/18/25 12:27 BMI result Body Mass Index 22.8 Const Other: General: Comfortable CVS: RRR Respiratory: clear to auscultation bilaterally. Good respiratory effort Skin: She has telangiectasia palmar aspect of both hands and anterior chest no sclerodactyly or skin tightening. MSK: Tender trapezius. No cervical spinous process tenderness or paraspinal muscle tenderness. No synovitis. [place] nodes present. Squaring of bilateral CMCs present Normal range of motion of upper extremity and lower extremities. 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 COMPARISON: There are no prior studies for comparison. FINDINGS: The bone mineral density of the lumbar spine is 0.999 g/cm2, corresponding to a T-score of -1.5, and a Z-score of 0.7. This is indicative of osteopenia. The bone mineral density of the left total hip is 0.766 g/cm2, corresponding to a T-score of -1.9, and a Z-score of 0.5. This is indicative of osteopenia. The bone mineral density of the left femoral neck is 0.658 g/cm2, corresponding to a T-score of -2.7, and a Z-score of -0.2. This is indicative of osteoporosis. The bone mineral density of the distal radius is 0.700 g/cm2, corresponding to a T-score of -2.1, and a Z-score of 1.0. This is indicative of osteopenia. FRACTURE RISK: The FRAX index suggests a risk of major osteoporotic fracture of 28.1%, and of hip fracture 12.7%. Assessment & Plan Assessment & Plan (1) CREST (calcinosis, Raynaud's phenomenon, esophageal dysfunction, sclerodactyly, telangiectasia): Comment: She has had increase upper back and shoulder pain since consistently taking prednisone 2.5 mg daily. She has trapezius strain contributing to her pain along with osteoarthritis of her right shoulder. She tenses up her shoulder further contributing to trapezius strain. We discussed the importance of core strengthening with her scoliosis. She agrees with plan with conservative management with physical therapy. Rheumatology history: Presenting with telangiectasia, Raynaud's phenomenon and GERD diagnosed 10 years ago. She has telangiectasia with tolerable Raynaud's phenomenon. She has been on chronic long-term low-dose prednisone for joint pain for over 20 years. Negative anticentromere antibody, scl70, SSA/SSB (sicca symptoms). Code(s): M34.1 - CR(E)ST syndrome Category: Medical Plan: Patient agreed to physical therapy Continue prednisone 2.5 mg daily. Plan to slowly taper prednisone with time Muscle relaxer cyclobenzaprine 5 mg q.h.s. 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 Category: Medical Plan: See above (3) Trapezius strain: Code(s): S46.819A - Strain of other muscles, fascia and tendons at shoulder and upper arm level, unspecified arm, initial encounter Category: Medical Qualifiers: Encounter type: initial encounter Laterality: unspecified laterality Qualified Code(s): S46.819A - Strain of other muscles, fascia and tendons at shoulder and upper arm level, unspecified arm, initial encounter Plan: See above (4) Scoliosis: Code(s): M41.9 - Scoliosis, unspecified Category: Medical Plan: PT ordered for back strengthening (5) Osteoporosis: Comment: Previous history of osteopenia treated with Fosamax for a few years. She felt nauseous on Fosamax and could not tolerate it. We discussed next steps in treatment based on recent bone density, which confirmed that she has now progress to have osteoporosis. Risk factors: Age, Long-term prednisone treatment. Reclast is indicated. Code(s): M81.0 - Age-related osteoporosis without current pathological fracture Category: Medical Plan: Information on Reclast given to patient Return to clinic in 3 months Orders: Orders PT Evaluation and Treatment Today M41.9 - Scoliosis, unspecified, S46.810Z - Strain of other muscles, fascia and tendons at shoulder and upper arm level, unspecified arm, initial encounter Medications: New prednisone 2.5 mg PO DAILY 90 tabs 1RF cyclobenzaprine 5 mg PO BEDTIME PRN 30 tabs 2RF muscle pain Coding Level of Care Code Est Pt Level 4 (58824) Complex EM visit Add On G2211 Diagnoses CREST (calcinosis, Raynaud's phenomenon, esophageal dysfunction, sclerodactyly, telangiectasia) M34.1 retirement systemic steroid user Z79.52 Strain of trapezius muscle, unspecified laterality, initial encounter S46.799E Encounter type: initial encounter Laterality: unspecified laterality Scoliosis M41.9 Osteoporosis M81.0
[2025-05-18 12:27] VITALS: BP 130/80; PULSE 71; O2SAT 95; BMI 22.8
== END 2025-05-18 13:19 | disposition home or self-care (01) ==
PROVIDERS: PCP Internal Medicine; Visit Provider Internal Medicine Rheumatology
DX: M34.1 CR(E)ST syndrome (principal); Z79.52 Long term (current) use of systemic steroids; S46.819A Strain of other muscles, fascia and tendons at shoulder and upper arm level, unspecified arm, initial encounter; M41.9 Scoliosis, unspecified; M81.0 Age-related osteoporosis without current pathological fracture
CPT/HCPCS: 99214

== ENCOUNTER → 2025-05-18 12:24 | Outpatient (BNVA) | payer MEDICARE, OTHER, SELFPAY | PROVIDERS: PCP Internal Medicine; Visit Provider Internal Medicine Rheumatology | DX: M34.1 CR(E)ST syndrome (principal); M41.9 Scoliosis, unspecified; M81.0 Age-related osteoporosis without current pathological fracture; S46.819A Strain of other muscles, fascia and tendons at shoulder and upper arm level, unspecified arm, initial encounter; Z79.52 Long term (current) use of systemic steroids | CPT/HCPCS: 99212 ==

== ENCOUNTER 2025-07-25 13:55 | Outpatient (RCR) | payer MEDICARE, OTHER, SELFPAY ==
--- NOTE | 2025-06-29 14:45 | MHC.PT.EP ---
[facility] [place] Office [place] Office [place] Office [address] Amandeep Pacheco [address] [phone] F: [phone] F: [phone] F: [phone] F: [phone] Physical Therapy Plan of Care Date of Evaluation: 06/29/25 Date of Surgery: Diagnosis: Strain of other muscles, fascia and tensons at shoulder and upper arm level. S46.819A, M41.9 Scolosis, unspecified, manual, myofascial release, TENS unit, core strengthening. signed by Dr. Escalante 05/18/25 Assessment: Pt is a RHD 85 y/o female, referred to PT from Strain of other muscles, fascia and tendons at shoulder and upper arm level. S46.819A, M41.9 Scoliosis, unspecified signed by Dr. Escalante 05/18/25 PMH significant for pacemaker (~06/2024), anxiety Hx of cholecystectomy History of cataract extraction and scoliosis with R rib hump (wears custom podiatry lift in her L shoe). Pt notes history of R shoulder pain for >5 years, history of completely torn RTC. She rates her pain as 10/10 today in her R shoulder pre session, notes nothing she does gives her relief. Post instruction of eval, she expressed reduction of her pain to 8/10 with education for slight postural changes via use of a lumbar roll, pillow support under the R UE, icing, and scapular retraction/pectoralis lengthening via exercises. Chichi notes she has had past PT with poor gains, (last time was 6 months ago), notes history of craniosacral PT for her scolosis with good outcomes. She also notes participation in acupuncture, reports receiving a cortisone injection in her R UE from [facility] 3 months ago. She has good insight to her impairments and expectations of what PT can do for her. She appears to be a good rehab candidate. Pt will benefit from a gentle postural program/manual therapy/self care/HEP designed to balance her muscular asymmetries related to her R RTC compromise and history of R hip scoliosis. She would like to trial PT at a frequency of 1x/week. She notes seeing a field operations manager regularly and notes history of taking her vitals daily in the AM. She expresses support from her daughter locally who is a nurse. Frequency and Duration: The patient will be seen 1-2x/week x 4-6 weeks Short Term Goals: 1. Initiate self care/I HEP program to manage sx of neck and shoulder pain. 2. Improve AROM of her shoulders by 25%. 3. Demonstrate improvement in NDI scoring. 4. Demonstrate improvement in SPADI scoring. Parent Trainer Goals: 1. I HEP. 2. Functional AROM of the L>R shoulder with pain improved by 25%. 3. Strengthen middle trapezius by 25%. 4. Strengthen lower trap by 25%. 5. I with self care management; good body mechanics for pain and mobility in upper quadrants during ADLS/IADLS. Treatment Plan: Modalities to reduce pain, spasms and effusion. Manual therapy to restore motion and function. Therapeutic exercise to improve strength and flexibility. Neuromuscular re-education for posture and balance. Therapeutic activities to return to functional activities of daily living. Electronically signed by: Prerna Hills, PT, DPT Please sign and return to therapist. Thank you for your referral.
== END 2025-07-26 14:10 | disposition home or self-care (01) ==
LOC: HO.PTS 13:55
PROVIDERS: PCP Internal Medicine; Visit Provider Internal Medicine Rheumatology
DX: M25.511 Pain in right shoulder (principal); M25.512 Pain in left shoulder; S46.819D Strain of other muscles, fascia and tendons at shoulder and upper arm level, unspecified arm, subsequent encounter; M41.9 Scoliosis, unspecified
CPT/HCPCS: 97110; 97140; 97161